=== PATIENT | female | born 1970 | race Caucasian/White ===

== ENCOUNTER 2016-08-29 13:04 | Inpatient (IN) | payer OTHER ==
[~2016-08-29] VITALS: Ht 147.3 cm; Wt 92.0 kg
[2016-08-29] MEDS ORDERED: ACETAMINOPHEN 325 MG TAB PO STA (14:11)
[2016-08-29] MEDS ORDERED: PIPERACILLIN/TAZOBACTAM 4.5 GM/100ML D5W IV STA (14:11)
[2016-08-29] MEDS ORDERED: IBUPROFEN 600 MG TAB PO STA (14:11)
[2016-08-29] MEDS ORDERED: SODIUM CHLORIDE 0.9% 1000ML 1,000 ML IV ONE (14:11)
[2016-08-29] MEDS ORDERED: LORAZEPAM 1 MG TAB SL STA (14:20)
--- NOTE | 2016-08-29 14:26 | EMERGENCY ROOM VISIT NOTE ---
History Report prepared by Chikis: Shakeel Sharp Under the Supervision of: Dr. Hitesh Gee M.D. First contact with patient: 14:06 Chief Complaint: FEVER Stated Complaint: FEVER, RASH History of Present Illness The patient is a 46 year old female with Down Syndrome who presents to the Emergency Room with complaints of a worsening rash on her upper body beginning several hours prior to arrival. As per sister, the patient associates a fever, lip dryness and eye redness with today's symptoms. She states she gave the patient a bath last night and did not notice the rash. The sister notes the patient was at work at [employer], and she received a call about the patient's rash. She states the she took the patient to [employer], where the patient had a fever. The patient denies the rash being itchy. 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 She states the patient had a cough and stuffy nose last week, but her symptoms have resolved. The patient denies pain with urination, diarrhea, vomiting, and a sore throat. 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 Review of Systems See HPI for pertinent positives & negatives. A total of 10 systems reviewed and were otherwise negative. Past Medical & Surgical Medical Problems: (1) Psoriasis (2) Rosacea Surgical Problems: (1) History of open heart surgery Family History Patient reports no known family medical history. Social History Smoking Status: Never Smoker Marital Status: single Housing Status: lives with family Current/Historical Medications Scheduled Levothyroxine Sodium (Synthroid), 112 MCG PO QAM Metformin Hcl (Glucophage), 500 MG PO QAM Allergies Coded Allergies: No Known Allergies (Unverified , 08/29/16) Physical Exam Vital Signs Date Time Temp Pulse Resp B/P Pulse Ox O2 Delivery O2 Flow Rate FiO2 08/29/16 16:03 106 19 93/43 91 Room Air 08/29/16 14:34 95 Room Air 08/29/16 14:05 39.4 117 22 129/78 100 Room Air 08/29/16 13:14 38.7 120 20 123/78 97 Room Air Physical Exam GENERAL: Patient is in no acute distress. HEENT: No acute trauma, normocephalic atraumatic, mucous membranes dry, erythematous throat with some exudate, tongue seems reddened as well, no nasal congestion, no scleral icterus. NECK: No stridor, no adenopathy, no meningismus, trachea is midline. LUNGS: Decreased breath sounds bilaterally. Breath sounds equal. No wheezing or rhonchi. HEART: Tachycardic with a 3/6 systolic murmur with a regular rhythm. ABDOMEN: Soft, nontender, bowel sounds positive, no hernias, no peritonitis. EXTREMITIES: No cyanosis or edema, full range of motion of all the joints without pain or difficulty, no signs for acute trauma. NEUROLOGIC: Awake and alert. Follows commands. Evidence for Downs Syndrome. SKIN: Erythematous, warm, patchy rash on the trunk, extremities, and possibly the neck. No rash on the lower extremities. No drainage. Medical Decision & Procedures ER Provider Diagnostic Interpretation: X-ray results as stated below per interpretation by me and the radiologist: CHEST ONE VIEW PORTABLE CLINICAL HISTORY: Sepsis dyspnea COMPARISON STUDY: No previous studies for comparison. FINDINGS: Poor inspiratory volumes. Slight interstitial prominence. Mild cardiomegaly. IMPRESSION: Slight generalized interstitial prominence. No well-defined focal infiltrate. Electronically signed by: Johnathan Kelley M.D. 08/29/2016 3:07 PM Laboratory Results 08/29/16 14:36 Red Blood Count 4.36, Mean Corpuscular Volume 89.2, Mean Corpuscular Hemoglobin 30.0, Mean Corpuscular Hemoglobin Concent 33.7, Mean Platelet Volume 9.9, Neutrophils (%) (Auto) 93.1, Lymphocytes (%) (Auto) 3.9, Monocytes (%) (Auto) 2.3, Eosinophils (%) (Auto) 0.0, Basophils (%) (Auto) 0.2, Neutrophils # (Auto) 25.63, Lymphocytes # (Auto) 1.08, Monocytes # (Auto) 0.64, Eosinophils # (Auto) 0.01, Basophils # (Auto) 0.05 08/29/16 14:36 Test 08/29/16 10:54 08/29/16 14:36 08/29/16 14:37 08/29/16 14:39 Urine Color DK YELLOW Urine Appearance TURBID (CLEAR) Urine pH 5.0 (4.5-7.5) Urine Specific [place] 1.032 (1.000-1.030) Urine Protein 1+ (NEG) Urine Glucose (UA) NEG (NEG) Urine Ketones 2+ (NEG) Urine Occult Blood 2+ (NEG) Urine Nitrite NEG (NEG) Urine Bilirubin NEG (NEG) Urine Urobilinogen NEG (NEG) Urine Leukocyte Esterase NEG (NEG) Urine WBC (Auto) 1-5 /hpf (0-5) Urine RBC (Auto) 10-30 /hpf (0-4) Urine Hyaline Casts (Auto) 0 /lpf (0-5) Urine Epithelial Cells (Auto) >30 /lpf (0-5) Urine Bacteria (Auto) NEG (NEG) Urine Renal Epithelial Cells /lpf (0-5) Urine Crystals AMORPHOUS SEDIMENT (NONE Urine Pathogenic Casts /lpf (0) Urine Mucus PRESENT (NONE PRSENT) Urine Yeast (Auto) (NONE PRSENT) White Blood Count 27.56 K/uL (4.8-10.8) Red Blood Count 4.36 M/uL (4.2-5.4) Hemoglobin 13.1 g/dL (12.0-16.0) Hematocrit 38.9 % (37-47) Mean Corpuscular Volume 89.2 fL (80-100) Mean Corpuscular Hemoglobin 30.0 pg (25-34) Mean Corpuscular Hemoglobin Concent 33.7 g/dl (32-36) Platelet Count 285 K/uL (130-400) Mean Platelet Volume 9.9 fL (7.4-10.4) Neutrophils (%) (Auto) 93.1 % Lymphocytes (%) (Auto) 3.9 % Monocytes (%) (Auto) 2.3 % Eosinophils (%) (Auto) 0.0 % Basophils (%) (Auto) 0.2 % Neutrophils # (Auto) 25.63 K/uL (1.4-6.5) Lymphocytes # (Auto) 1.08 K/uL (1.2-3.4) Monocytes # (Auto) 0.64 K/uL (0.11-0.59) Eosinophils # (Auto) 0.01 K/uL (0-0.5) Basophils # (Auto) 0.05 K/uL (0-0.2) RDW Standard Deviation 56.5 fL (36.4-46.3) RDW Coefficient of Variation 17.2 % (11.5-14.5) Immature Granulocyte % (Auto) 0.5 % Immature Granulocyte # (Auto) 0.15 K/uL (0.00-0.02) Prothrombin Time 11.6 SECONDS (9.0-12.0) Prothromb Time International Ratio 1.1 (0.9-1.1) Activated Partial Thromboplast Time 28.0 SECONDS (21.0-31.0) Partial Thromboplastin Ratio 1.1 Anion Gap 11.0 mmol/L (3-11) Est Creatinine Clear Calc Drug Dose 67.4 ml/min Estimated GFR () 79.4 Estimated GFR (Non- 68.5 BUN/Creatinine Ratio 9.7 (10-20) Calcium Level 8.4 mg/dl (8.5-10.1) Magnesium Level 2.1 mg/dl (1.8-2.4) Total Bilirubin 0.7 mg/dl (0.2-1) Aspartate Amino Transf (AST/SGOT) 34 U/L (15-37) Alanine Aminotransferase (ALT/SGPT) 42 U/L (12-78) Alkaline Phosphatase 112 U/L (45-117) Total Protein 8.3 gm/dl (6.4-8.2) Albumin 2.5 gm/dl (3.4-5.0) Globulin 5.8 gm/dl (2.5-4.0) Albumin/Globulin Ratio 0.4 (0.9-2) Monoscreen NEG (NEG) Influenza Type A Antigen Neg for Influ A (NEG) Influenza Type B Antigen Neg for Influ B (NEG) Bedside Lactic Acid Venous 1.55 mmol/L (0.90-1.70) Test 08/29/16 17:44 Lactic Acid Level 1.1 mmol/L (0.4-2.0) Laboratory results reviewed by me. Medications Administered Medications (Trade) Dose Ordered Sig/Artur Route Start Time Stop Time Status Last Admin Dose Admin Sodium Chloride (Nss 1000ml) 1,000 ml @ 999 mls/hr Q1H1M ONCE IV 08/29/16 14:11 08/29/16 15:11 DC 08/29/16 15:18 999 MLS/HR Piperacillin Sod/ Tazobactam Sod 4.5 gm 4.5 gm ONE STAT IV 08/29/16 14:11 08/29/16 14:14 DC 08/29/16 15:20 4.5 GM Daptomycin/Sodium Chloride (Cubicin IV/Nss 50ml) 60 ml @ 100 mls/hr NOW ONCE IV 08/29/16 14:45 08/29/16 15:20 DC 08/29/16 15:20 100 MLS/HR Acetaminophen (Tylenol Tab) 650 mg NOW STAT PO 08/29/16 14:11 08/29/16 14:14 DC 08/29/16 14:41 650 MG Ibuprofen (Motrin Tab) 600 mg NOW STAT PO 08/29/16 14:11 08/29/16 14:14 DC 08/29/16 14:41 600 MG Lorazepam (Ativan Tab) 1 mg NOW STAT SL 08/29/16 14:20 08/29/16 14:21 DC 08/29/16 14:25 1 MG ED Course 1407: The patient was evaluated in room B5. A complete history and physical exam was performed. 1411: Ordered Motrin Tab 600 mg PO, Tylenol Tab 650 mg PO, Zosyn Iv 4.5 gm IV, Sodium Chloride 1,000 ml @ 999 mls/hr IV. 1420: Ordered Ativan Tab 1 mg SL. 1445: Ordered Daptomycin 500 mg/Sodium Chloride 60 ml @ 100 mls/hr IV. 1541: Reevaluated the patient and updated the patient and her family. 1554: I spoke to Kandi Hernandez PA-C ([facility]) about the patient's case, and she will follow the patient for further evaluation. Medical Decision The differential diagnoses include but are not limited to: dehydration, strep pharyngitis, mono, cellulitis, pneumonia, UTI, electrolyte imbalance, endocarditis, bacteremia, sepsis. There is a marked leukocytosis at 27,000, no worrisome anemia. No significant electrolyte abnormality, kidney failure or hepatitis. Lactic acid level is not elevated making severe sepsis less likely. Urinalysis shows dehydration, no obvious infection. [place] testing was negative. Influenza testing was negative. Chest x-ray does not show pneumonia or CHF. Strep testing was positive. Blood cultures are pending. The patient was aggressively managed. She received IV saline, she was given IV Zosyn and IV daptomycin. She received oral Tylenol and oral Motrin for fever. The patient was given a dose of IV Ativan for relaxation. The patient is doing well, I do think admission/observation is warranted. I did speak with the family, I talked with case management. The on-call hospitalist was consulted. The patient appears to have early sepsis from a strep infection. Consults Time Called: 153 Consulting Physician: Kandi Hernandez PA-C ([facility]) Returned Call: 1554 I spoke to Kandi Hernandez PA-C ([facility]) about the patient's case, and she will follow the patient for further evaluation. Impression Primary Impression: Sepsis Additional Impressions: Dehydration Strep pharyngitis Rash Critical Care I have personally spent greater than 35 minutes of critical care time in the direct management of this patient. This includes bedside care, interpretation of diagnostic studies, and testing, discussion with consultants, patient, and family members, and other required patient management activities. This 35 minutes is in excess of all separately billable procedures. Scribe Attestation The scribe's documentation has been prepared under my direction and personally reviewed by me in its entirety. I confirm that the note above accurately reflects all work, treatment, procedures, and medical decision making performed by me. Departure Information Dispostion Being Evaluated By Hospitalist (Kandi Hernandez PA-C ([facility])) Referrals No Doctor, Assigned (PCP) Problem Qualifiers
[2016-08-29] MEDS ORDERED: GLC/500 PO (14:38)
[2016-08-29] MEDS ORDERED: DAPTOmycin IV 500 MG in SODIUM CHLORIDE 0.9% 50ML 50 ML IV ONE (14:45)
[2016-08-29 15:02] LABS: HEMATOCRIT 38.9 % (37-47); MEAN CELL VOLUME 89.2 fL (80-100); MEAN CORPUSCULAR HGB CONC 33.7 g/dl (32-36); MEAN PLATELET VOLUME 9.9 fL (7.4-10.4); PLATELET COUNT 285 K/uL (130-400); RED BLOOD COUNT 4.36 M/uL (4.2-5.4); WHITE BLOOD COUNT 27.56 K/uL (4.8-10.8)
--- NOTE | 2016-08-29 15:08 | DIAGNOSTIC IMAGING REPORT ---
CHEST ONE VIEW PORTABLE CLINICAL HISTORY: Sepsis dyspnea COMPARISON STUDY: No previous studies for comparison. FINDINGS: Poor inspiratory volumes. Slight interstitial prominence. Mild cardiomegaly. IMPRESSION: Slight generalized interstitial prominence. No well-defined focal infiltrate. Electronically signed by: Johnathan Kelley M.D. 08/29/2016 3:07 PM Dictated Date/Time: 08/29/2016 3:05 PM
[2016-08-29 15:12] LABS: INR 1.1 (0.9-1.1); PARTIAL THROMBOPLASTIN RATIO 1.1; PROTHROMBIN TIME (PATIENT) 11.6 SECONDS (9.0-12.0)
[2016-08-29 15:17] LABS: BUN/CREATININE RATIO 9.7 (10-20); CALCIUM 8.4 mg/dl (8.5-10.1); MAGNESIUM 2.1 mg/dl (1.8-2.4); POTASSIUM 3.9 mmol/L (3.5-5.1)
[2016-08-29 15:20] LABS: ALB/GLOB RATIO 0.4 (0.9-2)
[2016-08-29 15:21] LABS: BASO % 0.2 %; BASO ABS # 0.05 K/uL (0-0.2); COMPLETE YES; IG% 0.5 %; LYMPH % 3.9 %; LYMPH ABS # 1.08 K/uL (1.2-3.4); MONO % 2.3 %; NEUT % 93.1 %
[2016-08-29 16:10] LABS: URINE APPEARANCE TURBID (CLEAR); URINE COLOR DK YELLOW; URINE EPITHELIAL CELL AUTO >30 /lpf (0-5); URINE NITRITE NEG (NEG); URINE SPECIFIC GRAVITY 1.032 (1.000-1.030); UROBILINOGEN NEG (NEG); ZZUR CULT IF INDIC CLEAN CATCH YES
[2016-08-29 16:12] LABS: MANUAL MICROSCOPIC REQUIRED? NO; REVIEW REQ? YES
[2016-08-29 16:14] LABS: URINE BILIRUBIN NEG (NEG)
[2016-08-29 16:40] LABS: URINE MUCUS PRESENT (NONE PRSENT)
[2016-08-29] MEDS ORDERED: ONDANSETRON INJ 2 MG/ML 2 ML VIAL IV PRN (17:00)
--- NOTE | 2016-08-29 19:44 | History and Physical ---
History & Physical Date & Time of Service: Aug 29, 2016 at 18:50 Chief Complaint: Fever, Rash Primary Care Physician: Rodrigue Bhandari D.O. History of Present Illness 46 year old female who presents to the ER with fever and rash. Patient has Down' s syndrome and some history is obtained from her brother who is at the bedside. He reports that she was at [facility] today and they noted a rash on her right upper arm with a couple of small blisters. She was seen at [facility] and was noted to be febrile and the rash was spreading over both arms and her trunk. Patient denies any complaints. She reports the rash is not pruritic. She denies chills or body aches. Brother reports she has been in her usual state of health. No reports of chest pain or shortness of breath. Denies throat soreness or difficulty swallowing. She has chronic edema and venous changes to her BLLE which are unchanged. No abdominal pain, nausea, vomiting, or diarrhea. No urinary symptoms. Denies lightheadedness, dizziness, or syncopal events. In the ER, patient is febrile 39.4 and tachycardic in the 110s. BP stable. Lactic acid is negative. Rapid strep was positive. Patient was given IVF, Tylenol, Daptomycin, and Imipenem. Past Medical/Surgical History Medical Problems: (1) Down syndrome Status: Chronic (2) Hyperinsulinemia Status: Chronic (3) Hypothyroidism Status: Chronic (4) Mild mental retardation Status: Chronic Surgical Problems: (1) H/O atrial septal defect repair Status: Chronic Family History FH: CVA (cerebrovascular accident) FATHER Social History Smoking Status: Never Smoker Alcohol Use: none Housing status: lives with family Immunizations History of Influenza Vaccine: Yes Influenza Vaccine Date: Apr 29, 2015 History of Tetanus Vaccine?: Yes Tetanus Immunization Date: Mar 31, 2008 Allergies Coded Allergies: No Known Allergies (Unverified , 08/29/16) Home Medications Scheduled Levothyroxine Sodium (Synthroid), 112 MCG PO QAM Metformin Hcl (Glucophage), 500 MG PO QAM Review of Systems 10 point review of systems was completed with the pertinent positives and negatives noted per the HPI Physical Exam Vital Signs Date Time Temp Pulse Resp B/P Pulse Ox O2 Delivery O2 Flow Rate FiO2 08/29/16 18:44 36.7 08/29/16 18:00 87 16 109/61 92 Room Air 08/29/16 16:03 106 19 93/43 91 Room Air 08/29/16 14:34 95 Room Air 08/29/16 14:05 39.4 117 22 129/78 100 Room Air 08/29/16 13:14 38.7 120 20 123/78 97 Room Air General Appearance: no apparent distress Head: normocephalic Eyes: normal inspection ENT: hearing grossly normal, + pharyngeal erythema Neck: supple, no JVD Respiratory/Chest: lungs clear, normal breath sounds, no respiratory distress Cardiovascular: + tachycardia (regular rhythm), + systolic murmur, + pertinent finding (trace edema BLLE ) Abdomen/GI: normal bowel sounds, non tender, soft Extremities/Musculoskelatal: normal inspection, no calf tenderness Neurologic/Psych: no motor/sensory deficits, alert, oriented x 3, + pertinent finding (hx Downs syndrome, mild mental retardation) Skin: + rash (flat reddened, non blanching, noted over BLUE and trunk; two small fluid filled blisters on the posterior aspect of the right upper arm) Diagnostics Laboratory Results Results Past 24 Hours Test 08/29/16 10:54 08/29/16 14:36 08/29/16 14:37 08/29/16 14:39 Range/Units Urine Color DK YELLOW Urine Appearance TURBID CLEAR Urine pH 5.0 4.5-7.5 Urine Specific [place] 1.032 1.000-1.030 Urine Protein 1+ NEG Urine Glucose (UA) NEG NEG Urine Ketones 2+ NEG Urine Occult Blood 2+ NEG Urine Nitrite NEG NEG Urine Bilirubin NEG NEG Urine Urobilinogen NEG NEG Urine Leukocyte Esterase NEG NEG Urine WBC (Auto) 1-5 0-5 /hpf Urine RBC (Auto) 10-30 0-4 /hpf Urine Hyaline Casts (Auto) 0 0-5 /lpf Urine Epithelial Cells (Auto) >30 0-5 /lpf Urine Bacteria (Auto) NEG NEG Urine Renal Epithelial Cells 0-5 /lpf Urine Crystals AMORPHOUS SEDIMENT NONE PRSENT Urine Pathogenic Casts 0 /lpf Urine Mucus PRESENT NONE PRSENT Urine Yeast (Auto) NONE PRSENT White Blood Count 27.56 4.8-10.8 K/uL Red Blood Count 4.36 4.2-5.4 M/uL Hemoglobin 13.1 12.0-16.0 g/dL Hematocrit 38.9 37-47 % Mean Corpuscular Volume 89.2 80-100 fL Mean Corpuscular Hemoglobin 30.0 25-34 pg Mean Corpuscular Hemoglobin Concent 33.7 32-36 g/dl Platelet Count 285 130-400 K/uL Mean Platelet Volume 9.9 7.4-10.4 fL Neutrophils (%) (Auto) 93.1 % Lymphocytes (%) (Auto) 3.9 % Monocytes (%) (Auto) 2.3 % Eosinophils (%) (Auto) 0.0 % Basophils (%) (Auto) 0.2 % Neutrophils # (Auto) 25.63 1.4-6.5 K/uL Lymphocytes # (Auto) 1.08 1.2-3.4 K/uL Monocytes # (Auto) 0.64 0.11-0.59 K/uL Eosinophils # (Auto) 0.01 0-0.5 K/uL Basophils # (Auto) 0.05 0-0.2 K/uL RDW Standard Deviation 56.5 36.4-46.3 fL RDW Coefficient of Variation 17.2 11.5-14.5 % Immature Granulocyte % (Auto) 0.5 % Immature Granulocyte # (Auto) 0.15 0.00-0.02 K/uL Prothrombin Time 11.6 9.0-12.0 SECONDS Prothromb Time International Ratio 1.1 0.9-1.1 Activated Partial Thromboplast Time 28.0 21.0-31.0 SECONDS Partial Thromboplastin Ratio 1.1 Sodium Level 136 136-145 mmol/L Potassium Level 3.9 3.5-5.1 mmol/L Chloride Level 99 98-107 mmol/L Carbon Dioxide Level 26 21-32 mmol/L Anion Gap 11.0 3-11 mmol/L Blood Urea Nitrogen 10 7-18 mg/dl Creatinine 1.00 0.60-1.20 mg/dl Est Creatinine Clear Calc Drug Dose 67.4 ml/min Estimated GFR () 79.4 Estimated GFR (Non- 68.5 BUN/Creatinine Ratio 9.7 10-20 Random Glucose 95 70-99 mg/dl Calcium Level 8.4 8.5-10.1 mg/dl Magnesium Level 2.1 1.8-2.4 mg/dl Total Bilirubin 0.7 0.2-1 mg/dl Aspartate Amino Transf (AST/SGOT) 34 15-37 U/L Alanine Aminotransferase (ALT/SGPT) 42 12-78 U/L Alkaline Phosphatase 112 45-117 U/L Total Protein 8.3 6.4-8.2 gm/dl Albumin 2.5 3.4-5.0 gm/dl Globulin 5.8 2.5-4.0 gm/dl Albumin/Globulin Ratio 0.4 0.9-2 Monoscreen NEG NEG Influenza Type A Antigen Neg for Influ A NEG Influenza Type B Antigen Neg for Influ B NEG Bedside Lactic Acid Venous 1.55 0.90-1.70 mmol/L Test 08/29/16 17:44 Range/Units Lactic Acid Level 1.1 0.4-2.0 mmol/L Microbiology Results 08/29/16 Blood Culture, Received Pending 08/29/16 Blood Culture, Received Pending 08/29/16 Group A Streptococcus Screen, Aren Batch Pending 08/29/16 Group A Streptococcus Screen (ALLAN), Aren Batch Pending 08/29/16 Urine Culture, Received Pending Diagnostic Radiology CXR IMPRESSION: Slight generalized interstitial prominence. No well-defined focal infiltrate. Impression Assessment and Plan SEPSIS DUE TO STREP - admit to tele - presenting with fast spreading rash, fever, leukocytosis, and tachycardia; lactic acid WNL, BP stable - HR improved with IVF, afebrile after Tylenol administration - rapid throat strep + in ED - culture sent to lab for confirmation - rapid flu negative, will check PCR - s/p Dapto and Imipenem in ED; case discussed with ID, will start patient on Ancef and add clindamycin for antitoxin effect - blood cultures drawn - consider rheumatic fever - does have murmur on exam however murmur has been documented in patient's history; will check EKG, troponin, ESR, CRP; low threshold for echo - do not suspect TSS HYPOTHYROIDISM - continue levothyroxine 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 07/2016 - hold metformin, check BSG DVT PROPHYLAXIS - SCDs DISPO - In my clinical judgment this beneficiary meets acute admission criteria, established by [facility], that includes being hospitalized through two midnights. Agree with above H and P.Briefly 46F with hx of down syndrome was brought in because of fast spreading rash on the trunk and fevers. Initially patient denies any complains but has sore throat now. BP stable. Lives with brother and ambulatory at home. 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 on iv Ancef and clindamycin as er ID recommendation f/u cx consider echo VTE Prophylaxis VTE Risk Assessment Done? Y/N: Yes Risk Level: Low
[2016-08-29 19:59] VITALS: BP 131/73; PULSE 96; TEMP 36.9; O2SAT 96; Ht 147.3 cm; Wt 92.0 kg
[2016-08-29] MEDS: SODIUM CHLORIDE 0.9% 1000ML 1,000 ML IV SCH (20:34)
[2016-08-29] MEDS: CLINDAMYCIN IV 600 MG in DEXTROSE 5% ADD-VANTAGE 50ML 50 ML IV SCH (20:55)
[2016-08-29] MEDS: CEFAZOLIN IV 2,000 MG in DEXTROSE 5% 50ML 50 ML IV SCH (22:22)
[2016-08-30] VITALS (7 sets, daily range): BP systolic 87–124; BP diastolic 56–82; PULSE 76–93; TEMP 36.8–37.3; O2SAT 94–96
[2016-08-30 01:13] LABS: INFLUENZA A PCR Neg for Influ A (NEG); INFLUENZA B PCR Neg for Influ B (NEG)
[2016-08-30] MEDS: SODIUM CHLORIDE 0.9% 1000ML 1,000 ML IV SCH ×3 (03:09→18:43)
[2016-08-30] MEDS: CLINDAMYCIN IV 600 MG in DEXTROSE 5% ADD-VANTAGE 50ML 50 ML IV SCH ×3 (03:15→19:26)
[2016-08-30] MEDS ORDERED: SODIUM CHLORIDE 0.9% 500ML 500 ML IV ONE ×2 (03:45→05:15)
[2016-08-30 04:33] LABS: BASO % 0.2 %; BASO ABS # 0.04 K/uL (0-0.2); COMPLETE YES; EOS % 0.2 %; HEMATOCRIT 33.9 % (37-47); IG% 0.4 %; LYMPH ABS # 0.83 K/uL (1.2-3.4); MEAN CELL VOLUME 89.9 fL (80-100); MEAN CORPUSCULAR HEMOGLOBIN 29.4 pg (25-34); MEAN CORPUSCULAR HGB CONC 32.7 g/dl (32-36); MEAN PLATELET VOLUME 9.6 fL (7.4-10.4); MONO % 2.7 %; NEUT % 92.5 %; PLATELET COUNT 222 K/uL (130-400); RED BLOOD COUNT 3.77 M/uL (4.2-5.4)
[2016-08-30 05:05] LABS: BUN/CREATININE RATIO 11.6 (10-20); CALCIUM 7.4 mg/dl (8.5-10.1); CREATININE 1.3 mg/dl (0.60-1.20); MAGNESIUM 2.2 mg/dl (1.8-2.4); POTASSIUM 3.8 mmol/L (3.5-5.1)
[2016-08-30] MEDS: CEFAZOLIN IV 2,000 MG in DEXTROSE 5% 50ML 50 ML IV SCH ×2 (06:00→13:28)
[2016-08-30] MEDS: LEVOTHYROXINE 112 MCG TAB PO SCH (06:01)
--- NOTE | 2016-08-30 07:59 | Clinical Documentation Query ---
BECKI Workman : CLINICAL DOCUMENTATION QUERIES QUERY 1 OF 2 Patient is a 46 year old female admitted with sepsis due to strep pharyngitis. Admission BUN and creatinine were 10 mg/dl and 1.00 mg/dl. Repeat testing this a.m demonstrated values of 15 mg/dl and 1.30 mg/dl. Patient was administered a 500 cc bolus x 2 of IV NSS and is recieving maintenance fluids at 125 ml/hr. Additionally recieved a 1L bolus in the ED. She is being monitored with serial chemistries. In your clinical opinion is this patient being managed for: ( x ) Acute kidney failure ( ) Other explanation of clinical findings (Please Explain) ( ) Unable to determine (Please Define) ( ) Need to Discuss ( ) Not Agree The medical record reflects the following clinical findings, treatment, and risk factors. Clinical Indicators: As above Treatment:Patient was administered a 500 cc bolus x 2 of IV NSS and is recieving maintenance fluids at 125 ml/hr. Additionally recieved a 1L bolus in the ED. She is being monitored with serial chemistries. Risk Factors: Sepsis, possible poor oral intake prior to arrival. QUERY 2 OF 2 BMI noted to be 41.3 kg/m*m. CMS recognizes an elevated BMI to always be clinically significant. However, in order to capture the BMI, the associated clinical diagnosis must exist within the medical record. Consider clarification as suggested below as clinically appropriate. Thank you. In your clinical opinion is this patient being managed for/have a personal history of: ( ) Obesity ( ) Other explanation of clinical findings (Please Explain) ( ) Unable to determine (Please Define) ( ) Need to Discuss ( ) Not Agree The medical record reflects the following clinical findings, treatment, and risk factors. Clinical Indicators: As above Treatment:n/a Risk Factors: Down syndrome, lack of physical activity, overeating General Coding Guidelines ICD-10-CM Official Guidelines for Coding and Reporting 14. Documentation for BMI For the Body Mass Index (BMI), code assignment may be based on medical record documentation from clinicians who are not the patient's provider (i.e., physician or other qualified healthcare practitioner legally accountable for establishing the patient's diagnosis), since this information is typically documented by other clinicians involved in the care of the patient. However, the associated diagnosis (such as overweight or obesity) must be documented by the patient's provider. If there is conflicting medical record documentation, either from the same clinician or different clinicians, the patient's attending provider should be queried for clarification. Please clarify and document your clinical opinion in the progress notes and discharge summary. Terms such as "probable", "suspected", "likely", "questionable", "possible", or "still to be ruled out" are acceptable. IF IN AGREEMENT, YOU MUST DOCUMENT ABOVE DIAGNOSTIC STATEMENT IN DAILY PROGRESS NOTES AND DISCHARGE SUMMARY. This document is not part of the patient's record. Thank You, Sean Vines, ASHLYN [phone]
[2016-08-30] MEDS ORDERED: INFLUENZA ADMINISTRATION CHARGE ONE (09:00)
[2016-08-30] MEDS ORDERED: PNEUMOCOCCAL POLYSACCHARIDES 25 MCG/0.5 ML VIAL/SYR IM. ONE (09:00)
[2016-08-30] MEDS ORDERED: PNEUMOCOCCAL ADMINISTRATION CHARGE ONE (09:00)
[2016-08-30] MEDS ORDERED: INFLUENZA VIRUS QUAD VACCINE 0.5 ML SYR IM. ONE (09:00)
[2016-08-30] MEDS: ACETAMINOPHEN 325 MG TAB PO PRN ×2 (11:08→21:42)
--- NOTE | 2016-08-30 12:42 | Clinical Documentation Query ---
DONIS Rodriguez : CLINICAL DOCUMENTATION QUERIES QUERY 1 OF 2 Patient is a 46 year old female admitted with sepsis due to strep pharyngitis. Admission BUN and creatinine were 10 mg/dl and 1.00 mg/dl. Repeat testing this a.m demonstrated values of 15 mg/dl and 1.30 mg/dl. Patient was administered a 500 cc bolus x 2 of IV NSS and is recieving maintenance fluids at 125 ml/hr. Additionally recieved a 1L bolus in the ED. She is being monitored with serial chemistries. In your clinical opinion is this patient being managed for: ( ) Acute kidney failure ( ) Other explanation of clinical findings (Please Explain) ( ) Unable to determine (Please Define) ( ) Need to Discuss ( ) Not Agree The medical record reflects the following clinical findings, treatment, and risk factors. Clinical Indicators: As above Treatment:Patient was administered a 500 cc bolus x 2 of IV NSS and is recieving maintenance fluids at 125 ml/hr. Additionally recieved a 1L bolus in the ED. She is being monitored with serial chemistries. Risk Factors: Sepsis, possible poor oral intake prior to arrival. QUERY 2 OF 2 BMI noted to be 41.3 kg/m*m. CMS recognizes an elevated BMI to always be clinically significant. However, in order to capture the BMI, the associated clinical diagnosis must exist within the medical record. Consider clarification as suggested below as clinically appropriate. Thank you. In your clinical opinion is this patient being managed for/have a personal history of: ( ) Obesity ( ) Other explanation of clinical findings (Please Explain) ( ) Unable to determine (Please Define) ( ) Need to Discuss ( ) Not Agree The medical record reflects the following clinical findings, treatment, and risk factors. Clinical Indicators: As above Treatment:n/a Risk Factors: Down syndrome, lack of physical activity, overeating General Coding Guidelines ICD-10-CM Official Guidelines for Coding and Reporting 14. Documentation for BMI, Non-pressure ulcers and Pressure Ulcer Stages For the Body Mass Index (BMI), depth of non-pressure chronic ulcers and pressure ulcer stage codes, code assignment may be based on medical record documentation from clinicians who are not the patient's provider (i.e., physician or other qualified healthcare practitioner legally accountable for establishing the patient's diagnosis), since this information is typically documented by other clinicians involved in the care of the patient (e.g., a dietitian often documents the BMI and nurses often documents the pressure ulcer stages). However, the associated diagnosis (such as overweight, obesity, or pressure ulcer) must be documented by the patient's provider. If there is conflicting medical record documentation, either from the same clinician or different clinicians, the patient's attending provider should be queried for clarification. Please clarify and document your clinical opinion in the progress notes and discharge summary. Terms such as "probable", "suspected", "likely", "questionable", "possible", or "still to be ruled out" are acceptable. IF IN AGREEMENT, YOU MUST DOCUMENT ABOVE DIAGNOSTIC STATEMENT IN DAILY PROGRESS NOTES AND DISCHARGE SUMMARY. This document is not part of the patient's record. Thank You, Sean Vines, ASHLYN [phone]
--- NOTE | 2016-08-30 14:01 | Progress Note ---
Medicine Progress Note Date & Time of Visit: Aug 30, 2016 at 13:42. Subjective Pt was seen and examined Sitting in bed very comfortable with family member at bedside Pt said that she feels fine she denies any chest pain, palpitation, dizziness and sob Objective Last 8 Hrs Date Time Temp Pulse Resp B/P Pulse Ox O2 Delivery O2 Flow Rate FiO2 08/30/16 12:00 Room Air 08/30/16 12:00 37.3 89 20 124/82 94 Room Air 08/30/16 10:06 Room Air 08/30/16 07:16 36.8 89 24 88/65 96 Room Air Physical Exam: General- no acute distress, very pleasant Head- atraumatic Eyes- PERRL, EOMI ENT- oropharynx clear Neck- supple, no JVD Lungs- clear to auscultation and percussion Heart- +murmur Abdomen- normal bowel sounds, soft Extremities-no calf tenderness, swelling in the left hand Neuro- alert, awake, PERRL, EOMI; no facial palsy Skin- warm & dry Laboratory Results: Last 24 Hours Test 08/29/16 14:36 08/29/16 14:37 08/29/16 14:39 08/29/16 17:44 White Blood Count 27.56 K/uL Red Blood Count 4.36 M/uL Hemoglobin 13.1 g/dL Hematocrit 38.9 % Mean Corpuscular Volume 89.2 fL Mean Corpuscular Hemoglobin 30.0 pg Mean Corpuscular Hemoglobin Concent 33.7 g/dl Platelet Count 285 K/uL Mean Platelet Volume 9.9 fL Neutrophils (%) (Auto) 93.1 % Lymphocytes (%) (Auto) 3.9 % Monocytes (%) (Auto) 2.3 % Eosinophils (%) (Auto) 0.0 % Basophils (%) (Auto) 0.2 % Neutrophils # (Auto) 25.63 K/uL Lymphocytes # (Auto) 1.08 K/uL Monocytes # (Auto) 0.64 K/uL Eosinophils # (Auto) 0.01 K/uL Basophils # (Auto) 0.05 K/uL RDW Standard Deviation 56.5 fL RDW Coefficient of Variation 17.2 % Immature Granulocyte % (Auto) 0.5 % Immature Granulocyte # (Auto) 0.15 K/uL Erythrocyte Sedimentation Rate > 90 mm/hr Prothrombin Time 11.6 SECONDS Prothromb Time International Ratio 1.1 Activated Partial Thromboplast Time 28.0 SECONDS Partial Thromboplastin Ratio 1.1 Sodium Level 136 mmol/L Potassium Level 3.9 mmol/L Chloride Level 99 mmol/L Carbon Dioxide Level 26 mmol/L Anion Gap 11.0 mmol/L Blood Urea Nitrogen 10 mg/dl Creatinine 1.00 mg/dl Est Creatinine Clear Calc Drug Dose 67.4 ml/min Estimated GFR () 79.4 Estimated GFR (Non- 68.5 BUN/Creatinine Ratio 9.7 Random Glucose 95 mg/dl Calcium Level 8.4 mg/dl Magnesium Level 2.1 mg/dl Total Bilirubin 0.7 mg/dl Aspartate Amino Transf (AST/SGOT) 34 U/L Alanine Aminotransferase (ALT/SGPT) 42 U/L Alkaline Phosphatase 112 U/L Troponin I < 0.015 ng/ml C-Reactive Protein 18.60 mg/dl Total Protein 8.3 gm/dl Albumin 2.5 gm/dl Globulin 5.8 gm/dl Albumin/Globulin Ratio 0.4 Monoscreen NEG Influenza Type A Antigen Neg for Influ A Influenza Type B Antigen Neg for Influ B Bedside Lactic Acid Venous 1.55 mmol/L Lactic Acid Level 1.1 mmol/L Test 08/29/16 20:20 08/30/16 04:27 Influenza Type A (RT-PCR) Neg for Influ A Influenza Type B (RT-PCR) Neg for Influ B White Blood Count 20.90 K/uL Red Blood Count 3.77 M/uL Hemoglobin 11.1 g/dL Hematocrit 33.9 % Mean Corpuscular Volume 89.9 fL Mean Corpuscular Hemoglobin 29.4 pg Mean Corpuscular Hemoglobin Concent 32.7 g/dl Platelet Count 222 K/uL Mean Platelet Volume 9.6 fL Neutrophils (%) (Auto) 92.5 % Lymphocytes (%) (Auto) 4.0 % Monocytes (%) (Auto) 2.7 % Eosinophils (%) (Auto) 0.2 % Basophils (%) (Auto) 0.2 % Neutrophils # (Auto) 19.33 K/uL Lymphocytes # (Auto) 0.83 K/uL Monocytes # (Auto) 0.57 K/uL Eosinophils # (Auto) 0.04 K/uL Basophils # (Auto) 0.04 K/uL RDW Standard Deviation 57.7 fL RDW Coefficient of Variation 17.4 % Immature Granulocyte % (Auto) 0.4 % Immature Granulocyte # (Auto) 0.09 K/uL Sodium Level 141 mmol/L Potassium Level 3.8 mmol/L Chloride Level 108 mmol/L Carbon Dioxide Level 26 mmol/L Anion Gap 7.0 mmol/L Blood Urea Nitrogen 15 mg/dl Creatinine 1.30 mg/dl Est Creatinine Clear Calc Drug Dose 52.0 ml/min Estimated GFR () 57.8 Estimated GFR (Non- 49.9 BUN/Creatinine Ratio 11.6 Random Glucose 86 mg/dl Lactic Acid Level 1.5 mmol/L Calcium Level 7.4 mg/dl Magnesium Level 2.2 mg/dl Thyroid Stimulating Hormone (TSH) 3.660 uIu/ml Chemistry Specimen Hemolysis Date/Time Source Procedure Growth Status 08/29/16 15:00 Blood Blood Culture Pending Received 08/29/16 14:36 Blood Blood Culture Pending Received Assessment & Plan SEPSIS DUE TO STREP WBC on admission 27K leukocytosis trending down VS stable continue IVF Throat cx positive for strep A s/p Dapto and Imipenem in ED Case discussed with ID during admission recommends to start Ancef and add clindamycin for 48 hrs for antitoxin effect Blood cx pending and urine cx has no growth Might consider to change to PCN upon discharge No sign for Toxic shock syndrome Waiting for ID input RASH Scarlet fever From strep A Stable CONGENITAL HEART DISEASE Will get an echo asymptomatic HYPOTHYROIDISM - continue levothyroxine 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 07/2016 - hold metformin, check BSG DVT PROPHYLAXIS - SCDs CODE STATUS FULL CODE Current Inpatient Medications: Current Inpatient Medications Medications (Trade) Dose Ordered Sig/Artur Route Start Time Stop Time Status Last Admin Dose Admin Sodium Chloride (Nss 1000ml) 1,000 ml @ 125 mls/hr Q8H IV 08/29/16 16:53 09/28/16 16:52 08/30/16 05:59 125 MLS/HR Acetaminophen (Tylenol Tab) 650 mg Q4H PRN PO 08/29/16 17:00 09/28/16 16:59 08/30/16 11:08 650 MG Ondansetron HCl 4 mg 4 mg Q6H PRN IV 08/29/16 17:00 09/28/16 16:59 Cefazolin Sodium 2000 mg/Dextrose 60 ml @ 100 mls/hr Q8H IV 2/14/17 22:00 09/08/16 21:59 08/30/16 13:28 100 MLS/HR Clindamycin Phosphate/Dextrose (Cleocin Iv/ Dextrose Add-[place] 50ML) 54 ml @ 100 mls/hr Q8H IV 08/29/16 20:00 08/31/16 19:59 08/30/16 11:09 100 MLS/HR Levothyroxine Sodium (Synthroid Tab) 112 mcg DAILYBB PO 08/30/16 06:00 09/29/16 05:59 08/30/16 06:01 112 MCG
[2016-08-30] MEDS ORDERED: PERFLUTREN LIPID MICROSPHERE (DEFINITY) IV PRN (14:15)
[2016-08-30] MEDS ORDERED: NURSING VERBAL MED ORDER ONE (14:15)
--- NOTE | 2016-08-30 14:44 | Medical Consult ---
Consultation Date of Consultation: Aug 30, 2016. Attending Physician: Phil Valerio M.D. Reason for Consultation: Strep group A History of Present Illness Patient is a 46 yo female with Down Syndrome who presented to the ED with complaints of a worsening rash that happened suddenly. The patient had a cough last week according to her [id number], but it was thought to be a simple cold and went away. Otherwise, the patient has been in good health recently. The patient typically does not complain at home, and therefore it is difficult to assess for other previous symptoms. Her family member states that she did not feel warm or have any other obvious symptoms. Her rash started on her upper arms and continued spreading. She does also have dry, peeling lips, but this is chronic. The patient does have history of heart surgery when she was 4 years old at which time a "hole" was repaired. The patient otherwise is pleasant and does not complain of any specific problems. I did speak to Kandi Hernandez NP yesterday in regards to this patient at the time of admission as well. The patient had a positive strep screen though she was complaining of no sore throat. Blood cultures are pending. Urine culture is showing no growth. WBC count on admission was 27.56. ESR was > 90. CRp was 18.60. Creatinine increased slightly today to 1.30, but WBC count did come down a little to 20. Chest X-Ray showed slight generalized interstitial prominence. The patient is currently on IV Ancef and Clindamycin. I did also discuss this patient with Dr. Lagos. The patient is also currently menstruating. Her menstrual cycles are irregular and sporadic according to her [id number]. The patient does not use tampons, and she has no history of MRSA. Past Medical/Surgical History Medical Problems: (1) Down syndrome (2) Hyperinsulinemia (3) Hypothyroidism (4) Mild mental retardation Surgical Problems: (1) H/O atrial septal defect repair (2) History of open heart surgery Family History FH: CVA (cerebrovascular accident) FATHER Noncontributory Social History Smoking Status: Never Smoker Alcohol Use: none Housing Status: lives with family Allergies Coded Allergies: No Known Allergies (Unverified , 08/29/16) Home Medications Reported Home Medications Medications Dose Route/Sig Max Daily Dose Days Date Category Synthroid (Levothyroxine Sodium) 112 Mcg Tab 112 Mcg PO QAM 08/29/16 Reported Glucophage (Metformin Hcl) 500 Mg Tab 500 Mg PO QAM 08/29/16 Reported Current Inpatient Medications Current Inpatient Medications Medications (Trade) Dose Ordered Sig/Artur Route Start Time Stop Time Status Last Admin Dose Admin Sodium Chloride (Nss 1000ml) 1,000 ml @ 80 mls/hr [id number] IV 08/29/16 16:53 09/28/16 16:52 08/30/16 05:59 125 MLS/HR Acetaminophen (Tylenol Tab) 650 mg Q4H PRN PO 08/29/16 17:00 09/28/16 16:59 08/30/16 11:08 650 MG Ondansetron HCl 4 mg 4 mg Q6H PRN IV 08/29/16 17:00 09/28/16 16:59 Cefazolin Sodium 2000 mg/Dextrose 60 ml @ 100 mls/hr Q8H IV 08/29/16 22:00 09/08/16 21:59 08/30/16 13:28 100 MLS/HR Clindamycin Phosphate/Dextrose (Cleocin Iv/ Dextrose Add-[place] 50ML) 54 ml @ 100 mls/hr Q8H IV 08/29/16 20:00 08/31/16 19:59 08/30/16 11:09 100 MLS/HR Levothyroxine Sodium (Synthroid Tab) 112 mcg DAILYBB PO 08/30/16 06:00 09/29/16 05:59 08/30/16 06:01 112 MCG Perflutren Lipid Microsphere (Definity) 2 ml PRN PRN IV 08/30/16 14:15 08/30/16 23:59 08/30/16 14:12 2 ML Review of Systems Constitutional: + fever, No weakness Eyes: No worsening of vision ENT: No hearing loss Respiratory: + cough (last week- now resolved), No shortness of breath Cardiovascular: No chest pain Abdomen: No diarrhea, No nausea, No pain, No vomiting Musculoskeletal: + swelling (arms, since admission), No joint pain Genitourinary - Female: + problem reported (currently menstruating), No dysuria Integumentary: + color change (bright erythema of the upper extremities, chest , etc.), + rash, No itch Physical Exam Date Time Temp Pulse Resp B/P Pulse Ox O2 Delivery O2 Flow Rate FiO2 08/30/16 12:00 Room Air 08/30/16 12:00 37.3 89 20 124/82 94 Room Air 08/30/16 10:06 Room Air 08/30/16 07:16 36.8 89 24 88/65 96 Room Air 08/30/16 05:00 90/60 08/30/16 04:02 Room Air 08/30/16 03:10 36.8 92 20 87/59 95 Room Air 08/30/16 00:02 Room Air 08/30/16 00:00 36.8 90 22 93/59 95 Room Air 08/29/16 20:04 Room Air 08/29/16 19:59 36.9 96 20 131/73 96 Room Air 08/29/16 19:29 93 22 91/63 94 Room Air 08/29/16 18:44 36.7 08/29/16 18:00 87 16 109/61 92 Room Air 08/29/16 16:03 106 19 93/43 91 Room Air General Appearance: + obese, + pertinent finding (Down Syndrome) Head: normocephalic Eyes: normal inspection ENT: hearing grossly normal Neck: supple Respiratory/Chest: chest non-tender, lungs clear, normal breath sounds, no respiratory distress, no accessory muscle use Cardiovascular: regular rate, rhythm Abdomen/GI: normal bowel sounds, non tender, soft Back: normal inspection Extremities/Musculoskelatal: + swelling (bilateral arms, mild) Neurologic/Psych: alert, normal mood/affect Skin: + rash, + pertinent finding (bright splotchy erythema of the bilateral shoulders and upper extremities along with the left chest, neck, and back. Some mild blistering noted of the left shoulder. Erythema of the cheeks as well. Dry , peeling lips) Laboratory Results Item Value Date Time Blood Culture Received 08/29/16 1500 Blood Pending Blood Culture Received 08/29/16 1436 Blood Pending Urine Culture - Preliminary Resulted 08/29/16 1054 Urine , Clean Catch NO GROWTH - LESS THAN 1,000 COLONIES/... Group A Streptococcus Screen - Final Complete 08/29/16 0000 Throat SPECIMEN POSITIVE FOR GROUP A BETA ST... CHEST ONE VIEW PORTABLE CLINICAL HISTORY: Sepsis dyspnea COMPARISON STUDY: No previous studies for comparison. FINDINGS: Poor inspiratory volumes. Slight interstitial prominence. Mild cardiomegaly. IMPRESSION: Slight generalized interstitial prominence. No well-defined focal infiltrate. Last 24 Hours Test 08/29/16 14:39 08/29/16 17:44 08/29/16 20:20 08/30/16 04:27 Bedside Lactic Acid Venous 1.55 mmol/L Lactic Acid Level 1.1 mmol/L 1.5 mmol/L Influenza Type A (RT-PCR) Neg for Influ A Influenza Type B (RT-PCR) Neg for Influ B White Blood Count 20.90 K/uL Red Blood Count 3.77 M/uL Hemoglobin 11.1 g/dL Hematocrit 33.9 % Mean Corpuscular Volume 89.9 fL Mean Corpuscular Hemoglobin 29.4 pg Mean Corpuscular Hemoglobin Concent 32.7 g/dl Platelet Count 222 K/uL Mean Platelet Volume 9.6 fL Neutrophils (%) (Auto) 92.5 % Lymphocytes (%) (Auto) 4.0 % Monocytes (%) (Auto) 2.7 % Eosinophils (%) (Auto) 0.2 % Basophils (%) (Auto) 0.2 % Neutrophils # (Auto) 19.33 K/uL Lymphocytes # (Auto) 0.83 K/uL Monocytes # (Auto) 0.57 K/uL Eosinophils # (Auto) 0.04 K/uL Basophils # (Auto) 0.04 K/uL RDW Standard Deviation 57.7 fL RDW Coefficient of Variation 17.4 % Immature Granulocyte % (Auto) 0.4 % Immature Granulocyte # (Auto) 0.09 K/uL Sodium Level 141 mmol/L Potassium Level 3.8 mmol/L Chloride Level 108 mmol/L Carbon Dioxide Level 26 mmol/L Anion Gap 7.0 mmol/L Blood Urea Nitrogen 15 mg/dl Creatinine 1.30 mg/dl Est Creatinine Clear Calc Drug Dose 52.0 ml/min Estimated GFR () 57.8 Estimated GFR (Non- 49.9 BUN/Creatinine Ratio 11.6 Random Glucose 86 mg/dl Calcium Level 7.4 mg/dl Magnesium Level 2.2 mg/dl Thyroid Stimulating Hormone (TSH) 3.660 uIu/ml Chemistry Specimen Hemolysis Assessment & Plan Patient with Down Syndrome and sudden red and spreading rash on arms, chest, back, face, and stomach along with positive rapid test for strep, fever, and current menstrual cycle. The patient was placed on IV Ancef and IV Clindamycin, but her rash continues to spread and her creatinine increased slightly this morning. She is currently on Droplet precautions for possibility of scarlet fever, but this can be discontinued after 24 h of abx therapy (3:20pm this afternoon). Concerns for toxic shock syndrome or scalded skin syndrome in this patient with the severe erythema and mild tenderness to her rash. The most likely etiologies include Strep, Staph and MRSA. Will order MRSA nasal swab and procalcitonin. Will also change Ancef to Ceftaroline for now to include MRSA coverage as well. Continue Clindamycin today to complete 48 hours. Recommend having a very low threshold for transferring this patient if she begins to deteriorate. We will follow and adjust abx pending improvement. Plan: 1. MRSA nasal swab, Procalcitonin 2. D/C Ancef. Start Ceftaroline 3. Continue Clindamycin- total of 48 hours (anti-toxin) 4. Droplet precaution can D/C after 24 h 5. Low threshold for transfer if deterioration PROVIDER ADDENDUM: Patient examined and reviewed with Ms. Adorno. Agree with above assessment.
--- NOTE | 2016-08-30 15:11 | ECHOCARDIOGRAM REPORT ---
*NOTICE TO RECEIVING [employer] This information is strictly Confidential and protected under [place] law. [place] law prohibits you from making any further disclosure of this information unless further disclosure is expressly permitted by the written consent of the person to whom it pertains or is authorized by law. A general authorization for the release of medical or other information is not sufficient for this purpose. Hospital accepts no responsibility if the information is made available to any other person, INCLUDING THE PATIENT. Interpretation Summary * Name: ROSALVA HUGHES Study Date: 08/30/2016 01:29 PM BP: 124/82 mmHg * Patient Location: [facility] [place] HR: 89 * : 1970 (M/d/yyyy) Gender: Female Height: 57 in * Age: 46 yrs Ethnicity: CA Weight: 193 lb * Ordering Physician: JOE ALEXANDER. MICHAEL * Performed By: Jennifer Holley * * Reason For Study: MURMURS, FEVER, POSITIVE STREP CULTURE * BSA: 1.8 m2 * Grossly normal valvular structure and function. * -- Conclusions -- * With contrast echocardiography there is an outpocketing of contrast at the apex of the left vetricule. 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 * Ejection Fraction = 65-70%. * The right ventricular systolic function is normal. * Grossly normal valvular structure and function however, the study is limited and if endocarditis is suspected then consideration for a ADY should be given. Procedure Details * A complete two-dimensional transthoracic echocardiogram was performed (2D, M-mode, Doppler and color flow Doppler). * The study was technically difficult. * A contrast injection of Definity was performed to improve assessment of LV function. * Contrast was injected into an intravenous site in the left arm. * One vial of Definity ultrasound contrast was diluted in normal saline to a total volume of 10 ml. A total of '3' ml of solution was administered during imaging. * Lot # [id number] of Definity utilized for procedure. * Expiration date 09/01. * The attending nurse who injected the contrast agent was JOLEEN ABBOTT RN. Left Ventricle * The left ventricle is normal in size. * There is no thrombus. * There is normal left ventricular wall thickness. * With contrast echocardiography there is an outpocketing of contrast at the apex of the left vetricule. 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 * Ejection Fraction = 65-70%. Right Ventricle * The right ventricle is grossly normal size. * The right ventricular systolic function is normal. Atria * The left atrial size is normal. * Right atrial size is normal. * The interatrial septum is intact with no evidence for an atrial septal defect. Mitral Valve * The mitral valve anatomy is normal. * There is no vegetation seen on the mitral valve. * Significant mitral regurgitation is absent. Tricuspid Valve * The tricuspid valve anatomy is normal. * Significant tricuspid regurgitation is absent. Aortic Valve * The aortic valve is not well visualized. * No hemodynamically significant valvular aortic stenosis. * There is no significant aortic regurgitation. Great Vessels * The aortic root and proximal ascending aorta are normal sized. Pericardium/Pleural * There is no pericardial effusion. MMode 2D Measurements and Calculations IVSd 1.3 cm IVSs 1.7 cm LVIDd 3.7 cm LVIDs 2.2 cm LVPWd 1.1 cm LVPWs 1.9 cm IVS/LVPW 1.2 FS 39.3 % EDV(Teich) 57.0 ml ESV(Teich) 16.7 ml EF(Teich) 70.7 % EDV(cubed) 49.4 ml ESV(cubed) 11.0 ml EF(cubed) 77.7 % % IVS thick 32.0 % % LVPW thick 79.2 % LV mass(C)d 138.4 grams LV mass(C)dI 78.2 grams/m\S\2 LV mass(C)s 153.2 grams LV mass(C)sI 86.5 grams/m\S\2 SV(Teich) 40.3 ml SI(Teich) 22.8 ml/m\S\2 SV(cubed) 38.4 ml SI(cubed) 21.7 ml/m\S\2 ACS 1.1 cm asc Aorta Diam 2.6 cm LVOT diam 1.9 cm LVOT area 3.0 cm\S\2 LVAd ap4 35.1 cm\S\2 LVLd ap4 7.7 cm EDV(MOD-sp4) 131.5 ml EDV(sp4-el) 135.8 ml LVAs ap4 16.3 cm\S\2 LVLs ap4 6.1 cm ESV(MOD-sp4) 34.9 ml ESV(sp4-el) 37.1 ml EF(MOD-sp4) 73.5 % EF(sp4-el) 72.7 % LVAd ap2 34.3 cm\S\2 LVLd ap2 7.3 cm EDV(MOD-sp2) 132.0 ml EDV(sp2-el) 137.0 ml LVAs ap2 15.9 cm\S\2 LVLs ap2 6.1 cm ESV(MOD-sp2) 34.2 ml ESV(sp2-el) 35.4 ml EF(MOD-sp2) 74.1 % EF(sp2-el) 74.2 % LVLd %diff -5.74 % EDV(MOD-bp) 132.9 ml LVLs %diff -10 % ESV(MOD-bp) 35.0 ml EF(MOD-bp) 73.7 % SV(MOD-sp4) 96.7 ml SI(MOD-sp4) 54.6 ml/m\S\2 SV(MOD-sp2) 97.8 ml SI(MOD-sp2) 55.2 ml/m\S\2 SV(MOD-bp) 97.9 ml SI(MOD-bp) 55.3 ml/m\S\2 SV(sp4-el) 98.8 ml SI(sp4-el) 55.8 ml/m\S\2 SV(sp2-el) 101.6 ml SI(sp2-el) 57.4 ml/m\S\2 Doppler Measurements and Calculations MV E max [place] 141.6 cm/sec MV A max [place] 82.0 cm/sec MV E/A 1.7 MV V2 max 166.1 cm/sec MV max PG 11.0 mmHg MV V2 mean 83.0 cm/sec MV mean PG 3.4 mmHg MV V2 VTI 40.0 cm MVA(VTI) 1.6 cm\S\2 MV dec time 0.17 sec Ao V2 max 256.3 cm/sec Ao max PG 26.3 mmHg Ao max PG (full) 20.4 mmHg Ao V2 mean 194.7 cm/sec Ao mean PG 16.6 mmHg Ao mean PG (full) 13.8 mmHg Ao V2 VTI 49.4 cm [place](I,A) 1.3 cm\S\2 [place](I,D) 1.3 cm\S\2 [place](V,A) 1.4 cm\S\2 [place](V,D) 1.4 cm\S\2 LV V1 max PG 5.9 mmHg LV V1 mean PG 2.8 mmHg LV V1 max 121.0 cm/sec LV V1 mean 76.5 cm/sec LV V1 VTI 21.0 cm SV(LVOT) 62.3 ml SI(LVOT) 35.2 ml/m\S\2 PA V2 max 95.6 cm/sec PA max PG 3.7 mmHg TR max [place] 289.9 cm/sec
[2016-08-30] MEDS: CEFTAROLINE FOSAMIL INJ 600 MG in SODIUM CHLORIDE 0.9% 250ML 250 ML IV SCH (16:05)
[2016-08-31] VITALS (7 sets, daily range): BP systolic 106–115; BP diastolic 52–64; PULSE 70–91; TEMP 36.6–37.6; O2SAT 93–98
[2016-08-31] MEDS: CLINDAMYCIN IV 600 MG in DEXTROSE 5% ADD-VANTAGE 50ML 50 ML IV SCH ×2 (04:00→12:17)
[2016-08-31] MEDS: CEFTAROLINE FOSAMIL INJ 600 MG in SODIUM CHLORIDE 0.9% 250ML 250 ML IV SCH ×2 (04:49→16:01)
[2016-08-31] MEDS: LEVOTHYROXINE 112 MCG TAB PO SCH (06:04)
[2016-08-31] MEDS: SODIUM CHLORIDE 0.9% 1000ML 1,000 ML IV SCH (06:05)
[2016-08-31 06:34] LABS: HEMATOCRIT 30.9 % (37-47); MEAN CELL VOLUME 87.3 fL (80-100); MEAN CORPUSCULAR HEMOGLOBIN 29.4 pg (25-34); MEAN CORPUSCULAR HGB CONC 33.7 g/dl (32-36); MEAN PLATELET VOLUME 9.2 fL (7.4-10.4); PLATELET COUNT 238 K/uL (130-400); RED BLOOD COUNT 3.54 M/uL (4.2-5.4); WHITE BLOOD COUNT 14.69 K/uL (4.8-10.8)
[2016-08-31 07:10] LABS: BUN/CREATININE RATIO 10.9 (10-20); CREATININE 1.1 mg/dl (0.60-1.20); POTASSIUM 3.6 mmol/L (3.5-5.1)
--- NOTE | 2016-08-31 11:58 | Progress Note ---
Medicine Progress Note Date & Time of Visit: Aug 31, 2016 at 11:45. Subjective Pt was seen and examined Sitting in bed comfortable with no distress Pt said that she feels better her rash is fading away very slowly denies any itchiness, chest pain, fever, chills and SOB Objective Last 8 Hrs Date Time Temp Pulse Resp B/P Pulse Ox O2 Delivery O2 Flow Rate FiO2 08/31/16 11:33 36.7 86 18 106/61 95 08/31/16 08:21 36.6 76 18 112/57 97 08/31/16 08:00 Room Air 08/31/16 05:00 36.8 83 22 114/52 94 Room Air 08/31/16 04:00 Room Air Physical Exam: General- no acute distress, very pleasant Head- atraumatic Eyes- PERRL, EOMI ENT- oropharynx clear Neck- supple, no JVD Lungs- clear to auscultation and percussion Heart- +murmur, regular Abdomen- normal bowel sounds, soft Extremities-no calf tenderness, swelling in the left hand Neuro- alert, awake, PERRL, EOMI; no facial palsy Skin- warm & dry, +rash Laboratory Results: Last 24 Hours Test 08/31/16 06:24 08/31/16 06:27 White Blood Count 14.69 K/uL Red Blood Count 3.54 M/uL Hemoglobin 10.4 g/dL Hematocrit 30.9 % Mean Corpuscular Volume 87.3 fL Mean Corpuscular Hemoglobin 29.4 pg Mean Corpuscular Hemoglobin Concent 33.7 g/dl RDW Standard Deviation 57.0 fL RDW Coefficient of Variation 17.8 % Platelet Count 238 K/uL Mean Platelet Volume 9.2 fL C-Reactive Protein 15.30 mg/dl Procalcitonin 1.11 ng/mL Sodium Level 146 mmol/L Potassium Level 3.6 mmol/L Chloride Level 112 mmol/L Carbon Dioxide Level 22 mmol/L Anion Gap 12.0 mmol/L Blood Urea Nitrogen 12 mg/dl Creatinine 1.10 mg/dl Est Creatinine Clear Calc Drug Dose 63.2 ml/min Estimated GFR () 70.7 Estimated GFR (Non- 61.0 BUN/Creatinine Ratio 10.9 Random Glucose 100 mg/dl Calcium Level 7.0 mg/dl Date/Time Source Procedure Growth Status 08/30/16 16:05 Nasal MRSA DNA Surveillance Screen - Final Specimen Negative for MRSA by DNA Probe Complete Assessment & Plan SEPSIS DUE TO STREP A WBC on admission 27K leukocytosis trending down to 14 K today VS stable Throat cx positive for strep A Received Dapto and Imipenem in ED Case discussed with ID during admission recommends to start Ancef and add clindamycin for 48 hrs for antitoxin effect Abx was changed yesterday to ceftarodine by ID, Clinda will discontinue today Blood cx and urine cx has no growth Case discussed with ID YUDITH Franco and will follow up ID recommendation No sign for Toxic shock syndrome ACUTE KIDNEY INJURY Mostly related to sepsis Creatine wnl Continue monitor BMP will avoid nephrotoxic agent HYPERNATREMIA Mostly related to IVF will change fluid to 1/2NS continue monitor BMP RASH Possible Scarlet fever From strep A Improved CONGENITAL HEART DISEASE asymptomatic ECHO * With contrast echocardiography there is an outpocketing of contrast at the apex of the left vetricule. 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 * Ejection Fraction = 65-70%. * The right ventricular systolic function is normal. . 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 07/2016 - hold metformin, check BSG Stable DVT PROPHYLAXIS - SCDs CODE STATUS FULL CODE DISPOSITION Possible discharge in tomorrow Consultants: ID Current Inpatient Medications: Current Inpatient Medications Medications (Trade) Dose Ordered Sig/Artur Route Start Time Stop Time Status Last Admin Dose Admin Acetaminophen (Tylenol Tab) 650 mg Q4H PRN PO 08/29/16 17:00 09/28/16 16:59 08/30/16 21:42 650 MG Ondansetron HCl 4 mg 4 mg Q6H PRN IV 08/29/16 17:00 09/28/16 16:59 Clindamycin Phosphate/Dextrose (Cleocin Iv/ Dextrose Add-[place] 50ML) 54 ml @ 100 mls/hr Q8H IV 08/29/16 20:00 08/31/16 19:59 08/31/16 04:00 100 MLS/HR Levothyroxine Sodium 112 mcg 112 mcg DAILYBB PO 08/30/16 06:00 09/29/16 05:59 08/31/16 06:04 112 MCG Ceftaroline Fosamil 600 mg/ Sodium Chloride 270 ml @ 250 mls/hr Q12H IV 08/30/16 16:00 09/09/16 14:44 08/31/16 04:49 250 MLS/HR Sodium Chloride (1/2 Nss 1000ml) 1,000 ml @ 80 mls/hr [id number] IV 08/31/16 08:00 09/30/16 07:59
[2016-08-31] MEDS: SODIUM CHLORIDE 0.45% 1000ML 1,000 ML IV SCH ×2 (12:17→20:38)
[2016-08-31] MEDS: ACETAMINOPHEN 325 MG TAB PO PRN (13:54)
--- NOTE | 2016-08-31 13:56 | Infectious Disease Progress Nt ---
Progress Note Date of Service Aug 31, 2016. Subjective Pt evaluation today including: conversation w/ patient, conversation w/ family (Brother), physical exam, chart review, lab review, review of studies, conversation w/ pmo consultant (Dr. Valerio), review of inpatient medication list The patient appears to be improved today slightly. Her rash is slowly dissipating. Her white blood cell count was 14.69 this morning. Her hemoglobin was 10.4. Her repeat creatinine was 1.10. Her procalcitonin was 1.11. The patient continues on IV ceftaroline. Her clindamycin is going to discontinue today. She has received 48 hours. She has not had any continued fever, and her blood pressure has been stable. Her MRSA nasal screen was negative, and her blood cultures are showing no growth to date. Her urine culture was also finalized with no growth. The patient has no real complaints to offer this morning. She complains of no pain. All Other Systems: Reviewed and Negative Medications Current Inpatient Medications Medications (Trade) Dose Ordered Sig/Artur Route Start Time Stop Time Status Last Admin Dose Admin Acetaminophen (Tylenol Tab) 650 mg Q4H PRN PO 08/29/16 17:00 09/28/16 16:59 08/30/16 21:42 650 MG Ondansetron HCl 4 mg 4 mg Q6H PRN IV 08/29/16 17:00 09/28/16 16:59 Clindamycin Phosphate/Dextrose (Cleocin Iv/ Dextrose Add-[place] 50ML) 54 ml @ 100 mls/hr Q8H IV 08/29/16 20:00 08/31/16 19:59 08/31/16 12:17 100 MLS/HR Levothyroxine Sodium 112 mcg 112 mcg DAILYBB PO 08/30/16 06:00 09/29/16 05:59 08/31/16 06:04 112 MCG Ceftaroline Fosamil 600 mg/ Sodium Chloride 270 ml @ 250 mls/hr Q12H IV 08/30/16 16:00 09/09/16 14:44 08/31/16 04:49 250 MLS/HR Sodium Chloride (1/2 Nss 1000ml) 1,000 ml @ 80 mls/hr [id number] IV 08/31/16 08:00 09/30/16 07:59 08/31/16 12:17 80 MLS/HR Objective Vital Signs Date Time Temp Pulse Resp B/P Pulse Ox O2 Delivery O2 Flow Rate FiO2 08/31/16 13:45 37.6 08/31/16 12:00 Room Air 08/31/16 11:33 36.7 86 18 106/61 95 08/31/16 08:21 36.6 76 18 112/57 97 08/31/16 08:00 Room Air 08/31/16 05:00 36.8 83 22 114/52 94 Room Air 08/31/16 04:00 Room Air 08/31/16 00:05 37.4 91 18 115/64 93 Room Air 08/31/16 00:00 Room Air 08/30/16 20:04 Room Air 08/30/16 20:00 37.2 93 18 112/71 96 08/30/16 16:00 36.9 76 18 110/56 96 08/30/16 16:00 96 Room Air Physical Exam General Appearance: no apparent distress, + obese, + pertinent finding (Down syndrome) Eyes: normal inspection, sclerae normal ENT: hearing grossly normal Neck: supple, trachea midline Respiratory/Chest: no respiratory distress, no accessory muscle use Cardiovascular: regular rate, rhythm Extremities: normal range of motion, + swelling (left arm slightly swollen- mostly around previous IV site at antecubital space) Neurologic/Psychiatric: alert, normal mood/affect Skin: + rash (Mild to moderate continued erythema of the left chest, back, and bilateral upper extremities. Much improved overall. Nontender to touch. Mild warmth to palpation.) Laboratory Results Item Value Date Time MRSA DNA Surveillance Screen Aren Batch 08/30/16 1605 Nasal Pending MRSA DNA Surveillance Screen - Final Complete 08/30/16 1605 Nasal Specimen Negative for MRSA by DNA Probe Blood Culture - Preliminary Resulted 08/29/16 1500 Blood NO GROWTH TO DATE. Blood Culture - Preliminary Resulted 08/29/16 1436 Blood NO GROWTH TO DATE. Last 24 Hours Test 08/31/16 06:24 08/31/16 06:27 White Blood Count 14.69 K/uL Red Blood Count 3.54 M/uL Hemoglobin 10.4 g/dL Hematocrit 30.9 % Mean Corpuscular Volume 87.3 fL Mean Corpuscular Hemoglobin 29.4 pg Mean Corpuscular Hemoglobin Concent 33.7 g/dl RDW Standard Deviation 57.0 fL RDW Coefficient of Variation 17.8 % Platelet Count 238 K/uL Mean Platelet Volume 9.2 fL Erythrocyte Sedimentation Rate 70 mm/hr C-Reactive Protein 15.30 mg/dl Procalcitonin 1.11 ng/mL Sodium Level 146 mmol/L Potassium Level 3.6 mmol/L Chloride Level 112 mmol/L Carbon Dioxide Level 22 mmol/L Anion Gap 12.0 mmol/L Blood Urea Nitrogen 12 mg/dl Creatinine 1.10 mg/dl Est Creatinine Clear Calc Drug Dose 63.2 ml/min Estimated GFR () 70.7 Estimated GFR (Non- 61.0 BUN/Creatinine Ratio 10.9 Random Glucose 100 mg/dl Calcium Level 7.0 mg/dl Assessment and Plan Patient with Down Syndrome and sudden red and spreading rash on arms, chest, back, face, and stomach along with positive rapid test for strep, fever, and current menstrual cycle. The patient is currently on IV clindamycin and IV ceftaroline. The patient's clindamycin will discontinue today after 48 hours are complete. I feel that she likely would benefit from at least 1 more day of IV ceftaroline. If she continues to improve, she may be ready for discharge tomorrow. She likely will need continued p.o. antibiotic therapy following discontinuation of IV antibiotics. Will repeat ESR and CRP today. Plan: 1. Continue IV ceftaroline 2. Repeat ESR/CRP 3. Consider transition to p.o. tomorrow PROVIDER ADDENDUM: Patient reviewed with Ms. Adorno. Agree with above assessment.
[2016-09-01 00:01] VITALS: BP 112/70; PULSE 76; TEMP 36.8; O2SAT 91
[2016-09-01] MEDS: ACETAMINOPHEN 325 MG TAB PO PRN (03:24)
[2016-09-01] MEDS: CEFTAROLINE FOSAMIL INJ 600 MG in SODIUM CHLORIDE 0.9% 250ML 250 ML IV SCH (03:32)
[2016-09-01 04:00] VITALS: BP 111/60; PULSE 82; TEMP 37.5; O2SAT 93
[2016-09-01] MEDS: LEVOTHYROXINE 112 MCG TAB PO SCH (06:46)
[2016-09-01 06:59] LABS: HEMATOCRIT 31.8 % (37-47); MEAN CELL VOLUME 87.6 fL (80-100); MEAN CORPUSCULAR HEMOGLOBIN 29.2 pg (25-34); MEAN CORPUSCULAR HGB CONC 33.3 g/dl (32-36); MEAN PLATELET VOLUME 9.5 fL (7.4-10.4); PLATELET COUNT 284 K/uL (130-400); RED BLOOD COUNT 3.63 M/uL (4.2-5.4); WHITE BLOOD COUNT 11.94 K/uL (4.8-10.8)
[2016-09-01 07:32] LABS: BUN/CREATININE RATIO 10.6 (10-20); CALCIUM 7.3 mg/dl (8.5-10.1); CREATININE 0.97 mg/dl (0.60-1.20); POTASSIUM 3.7 mmol/L (3.5-5.1)
[2016-09-01 08:01] VITALS: BP 124/62; PULSE 76; TEMP 36.7; O2SAT 18; O2SAT 97
--- NOTE | 2016-09-01 10:56 | Progress Note ---
Medicine Progress Note Date & Time of Visit: Sep 01, 2016 at 10:46. Subjective Pt was seen and examined Sitting in chair very comfortable with no distress with family member at bedside She said that she feels fine her rash is getting much better and she denies any itchiness denies any chest pain, palpitation, dizziness and sob Objective Last 8 Hrs Date Time Temp Pulse Resp B/P Pulse Ox O2 Delivery O2 Flow Rate FiO2 09/01/16 08:01 36.7 76 18 124/62 97 09/01/16 08:00 Room Air 09/01/16 04:00 Room Air 09/01/16 04:00 37.5 82 18 111/60 93 Room Air Physical Exam: General- no acute distress, very pleasant Head- atraumatic Eyes- PERRL, EOMI ENT- oropharynx clear Neck- supple, no JVD Lungs- clear to auscultation and percussion Heart- +murmur, regular rate and rhythm Abdomen- normal bowel sounds, soft Extremities-no calf tenderness, swelling in the left hand Neuro- alert, awake, PERRL, EOMI; no facial palsy Skin- warm & dry, +rash improved Laboratory Results: Last 24 Hours Test 09/01/16 06:25 White Blood Count 11.94 K/uL Red Blood Count 3.63 M/uL Hemoglobin 10.6 g/dL Hematocrit 31.8 % Mean Corpuscular Volume 87.6 fL Mean Corpuscular Hemoglobin 29.2 pg Mean Corpuscular Hemoglobin Concent 33.3 g/dl RDW Standard Deviation 58.1 fL RDW Coefficient of Variation 17.9 % Platelet Count 284 K/uL Mean Platelet Volume 9.5 fL Sodium Level 144 mmol/L Potassium Level 3.7 mmol/L Chloride Level 111 mmol/L Carbon Dioxide Level 23 mmol/L Anion Gap 10.0 mmol/L Blood Urea Nitrogen 10 mg/dl Creatinine 0.97 mg/dl Est Creatinine Clear Calc Drug Dose 71.7 ml/min Estimated GFR () 82.3 Estimated GFR (Non- 71.0 BUN/Creatinine Ratio 10.6 Random Glucose 88 mg/dl Calcium Level 7.3 mg/dl Assessment & Plan SEPSIS DUE TO STREP A WBC on admission 27K leukocytosis trending down to 14 K ---> 11K today ESR and trending down, elevated procalcitonin VS stable Throat cx positive for strep A Received Dapto and Imipenem in ED Case discussed with ID during admission recommends to start Ancef and add clindamycin for 48 hrs for antitoxin effect Abx was changed yesterday to ceftarodine by ID, Clinda d/c yesterday Blood cx and urine cx no growth Will follow ID recommendation for transition to PO abx with Bactrim DS BID and PO Keflex 500 mg QID x 10 days She will follow up with ID as an outpatient next week No sign for Toxic shock syndrome Clinically stable ACUTE KIDNEY INJURY Mostly related to sepsis Creatine wnl Continue monitor BMP will avoid nephrotoxic agent HYPERNATREMIA Mostly related to IVF D/C IVF continue monitor BMP stable RASH Possible Scarlet fever From strep A Improved CONGENITAL HEART DISEASE asymptomatic ECHO * With contrast echocardiography there is an outpocketing of contrast at the apex of the left vetricule. 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 * Ejection Fraction = 65-70%. * The right ventricular systolic function is normal. . 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 07/2016 - hold metformin, check BSG Stable DVT PROPHYLAXIS - SCDs CODE STATUS FULL CODE DISPOSITION Tentative discharge today Bactrim DS BID and PO Keflex 500 mg QID x 10 days She will follow up with ID as an outpatient next week Consultants: BETY Current Inpatient Medications: Current Inpatient Medications Medications (Trade) Dose Ordered Sig/Artur Route Start Time Stop Time Status Last Admin Dose Admin Acetaminophen (Tylenol Tab) 650 mg Q4H PRN PO 08/29/16 17:00 09/28/16 16:59 09/01/16 03:24 650 MG Ondansetron HCl (Zofran Inj) 4 mg Q6H PRN IV 08/29/16 17:00 09/28/16 16:59 Levothyroxine Sodium 112 mcg 112 mcg DAILYBB PO 08/30/16 06:00 09/29/16 05:59 09/01/16 06:46 112 MCG Ceftaroline Fosamil/Sodium Chloride (Teflaro Inj/Nss 250ml) 270 ml @ 250 mls/hr Q12H IV 08/30/16 16:00 09/09/16 14:44 09/01/16 03:32 250 MLS/HR
--- NOTE | 2016-09-01 11:10 | Infectious Disease Progress Nt ---
Progress Note Date of Service Sep 01, 2016. Subjective Pt evaluation today including: conversation w/ patient, conversation w/ family (son), physical exam, chart review, lab review, review of studies, conversation w/ behavioral consultant, review of inpatient medication list WBC count 11.94 this morning. Repeat ESR was 70, and repeat CRP was mildly decreased to 15.30. Creatinine continues to be stable at 0.97. Blood cultures continue to show no growth to date. The patient is much improved today. She is ready to go home. She continues to have some very mild rash. She continues to be afebrile. She did have a loose stool overnight, but no watery diarrhea. All Other Systems: Reviewed and Negative Medications Current Inpatient Medications Medications (Trade) Dose Ordered Sig/Artur Route Start Time Stop Time Status Last Admin Dose Admin Acetaminophen (Tylenol Tab) 650 mg Q4H PRN PO 08/29/16 17:00 09/28/16 16:59 09/01/16 03:24 650 MG Ondansetron HCl (Zofran Inj) 4 mg Q6H PRN IV 08/29/16 17:00 09/28/16 16:59 Levothyroxine Sodium 112 mcg 112 mcg DAILYBB PO 08/30/16 06:00 09/29/16 05:59 09/01/16 06:46 112 MCG Ceftaroline Fosamil/Sodium Chloride (Teflaro Inj/Nss 250ml) 270 ml @ 250 mls/hr Q12H IV 08/30/16 16:00 09/09/16 14:44 09/01/16 03:32 250 MLS/HR Objective Vital Signs Date Time Temp Pulse Resp B/P Pulse Ox O2 Delivery O2 Flow Rate FiO2 09/01/16 08:01 36.7 76 18 124/62 97 09/01/16 08:00 Room Air 09/01/16 04:00 Room Air 09/01/16 04:00 37.5 82 18 111/60 93 Room Air 09/01/16 00:01 36.8 76 20 112/70 91 Room Air 09/01/16 00:01 Room Air 08/31/16 20:00 Room Air 08/31/16 19:17 36.6 70 20 110/62 98 Room Air 08/31/16 16:00 Room Air 08/31/16 15:49 36.8 80 20 112/61 94 Room Air 08/31/16 13:45 37.6 08/31/16 12:00 Room Air 08/31/16 11:33 36.7 86 18 106/61 95 Physical Exam General Appearance: no apparent distress, + obese Eyes: normal inspection, sclerae normal ENT: hearing grossly normal Neck: supple, trachea midline Respiratory/Chest: no respiratory distress, no accessory muscle use Cardiovascular: regular rate, rhythm Extremities: normal range of motion, + pertinent finding (continued mild swelling of the left arm- much improved) Neurologic/Psychiatric: alert, normal mood/affect Skin: warm/dry, + rash (Mild continued erythema of the upper extremities, but the erythema of her chest and back has mostly resolved. She has no continued spread. Slightly dry skin now on arms.) Laboratory Results Item Value Date Time MRSA DNA Surveillance Screen Aren Batch 08/30/16 1605 Nasal Pending Blood Culture - Preliminary Resulted 08/29/16 1436 Blood NO GROWTH TO DATE. Blood Culture - Preliminary Resulted 08/29/16 1500 Blood NO GROWTH TO DATE. Last 24 Hours Test 09/01/16 06:25 White Blood Count 11.94 K/uL Red Blood Count 3.63 M/uL Hemoglobin 10.6 g/dL Hematocrit 31.8 % Mean Corpuscular Volume 87.6 fL Mean Corpuscular Hemoglobin 29.2 pg Mean Corpuscular Hemoglobin Concent 33.3 g/dl RDW Standard Deviation 58.1 fL RDW Coefficient of Variation 17.9 % Platelet Count 284 K/uL Mean Platelet Volume 9.5 fL Sodium Level 144 mmol/L Potassium Level 3.7 mmol/L Chloride Level 111 mmol/L Carbon Dioxide Level 23 mmol/L Anion Gap 10.0 mmol/L Blood Urea Nitrogen 10 mg/dl Creatinine 0.97 mg/dl Est Creatinine Clear Calc Drug Dose 71.7 ml/min Estimated GFR () 82.3 Estimated GFR (Non- 71.0 BUN/Creatinine Ratio 10.6 Random Glucose 88 mg/dl Calcium Level 7.3 mg/dl Assessment and Plan Patient with Down Syndrome and sudden red and spreading rash with positive rapid test for strep. The patient is currently on IV ceftaroline. She is much improved today. Will transition to PO Bactrim DS BID and PO Keflex 500 mg QID x 10 days. She will need ID follow up as an outpatient next week. Final length of abx will be determined by further improvement. Otherwise, she is OK for D/C from ID perspective. Plan: 1. Transition to PO Bactrim and Keflex x 10 days PROVIDER ADDENDUM: Pt. reviewed with Ms. Adorno. Agree with above assessment.
[2016-09-01 11:51] VITALS: BP 140/76; PULSE 76; TEMP 36.8; O2SAT 95
[2016-09-01] MEDS ORDERED: CEPHALEXIN MONOHYDRATE 500 MG CAP PO SCH (13:00)
[2016-09-01] MEDS ORDERED: SULF-183 PO (14:16)
[2016-09-01] MEDS ORDERED: KFL500 PO (14:16)
--- NOTE | 2016-09-01 14:24 | Discharge Instructions ---
Discharge Instructions Admission Reason for Admission: Sepsis Discharge Discharge Diagnosis / Problem: Strep A, Rash, Acute kidney failure Discharge Goals Goal(s): Decrease discomfort, Improve function, Improve disease control Activity Recommendations Activity Limitations: resume your previous activity (as tolerated) . Instructions / Follow-Up Instructions / Follow-Up Follow up with your primary care provider Dr. Bhandari on Sep 06 at 11:10 am Please follow up with Infectious Disease next week, they will call you to schedule the appointment Please complete antibiotic course with Bactrim DS twice a day and PO Keflex 500 mg 4xtimes a day for 10 days Current Hospital Diet Patient's current hospital diet: Regular Diet Discharge Diet Recommended Diet: Regular Diet Pending Studies Studies pending at discharge: no Medical Emergencies . Who to Call and When: Medical Emergencies: If at any time you feel your situation is an emergency, please call 911 immediately. . Non-Emergent Contact Non-Emergency issues call your: Primary Care Provider Call Non-Emergent contact if: you have a fever, you have any medication questions . . "Provider Documentation" section prepared by Phil Valerio. VTE Core Measure Inpt VTE Proph given/why not?: SCD's
[2016-09-01 14:35] VITALS: BP 140/76; PULSE 76; TEMP 36.8; O2SAT 95
[2016-09-01] MEDS ORDERED: SULFAMETHOXAZOLE/TRIMETHOPRIM DS 800/160MG TAB PO SCH (21:00)
--- NOTE | 2016-09-03 21:04 | Discharge Summary ---
Discharge Summary Admission Date: Aug 29, 2016 at 16:59 Discharge Date: Sep 01, 2016 Discharge Disposition: Home Principal Diagnosis: Sepsis Secondary Diagnoses/Problems: Strep A Rash Acute kidney failure CONGENITAL HEART DISEASE Hypernatremia Procedures: ECHO Interpretation Summary * Name: ROSALVA HUGHES Study Date: 08/30/2016 01:29 PM BP: 124/82 mmHg * Patient Location: 209 HR: 89 * : 1970 (M/d/yyyy) Gender: Female Height: 57 in * Age: 46 yrs Ethnicity: [place] Weight: 193 lb * Ordering Physician: JOE ALEXANDER. MICHAEL * Performed By: Jennifer Holley * * Reason For Study: MURMURS, FEVER, POSITIVE STREP CULTURE * BSA: 1.8 m2 * Grossly normal valvular structure and function. * -- Conclusions -- * With contrast echocardiography there is an outpocketing of contrast at the apex of the left vetricule. 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 * Ejection Fraction = 65-70%. * The right ventricular systolic function is normal. * Grossly normal valvular structure and function however, the study is limited and if endocarditis is suspected then consideration for a ADY should be given. Procedure Details * A complete two-dimensional transthoracic echocardiogram was performed (2D, M- mode, Doppler and color flow Doppler). * The study was technically difficult. * A contrast injection of Definity was performed to improve assessment of LV function. * Contrast was injected into an intravenous site in the left arm. * One vial of Definity ultrasound contrast was diluted in normal saline to a total volume of 10 ml. A total of '3' ml of solution was administered during imaging. * Lot # [id number] of Definity utilized for procedure. * Expiration date 09/01. * The attending nurse who injected the contrast agent was JOLEEN ABBOTT RN. Left Ventricle * The left ventricle is normal in size. * There is no thrombus. * There is normal left ventricular wall thickness. * With contrast echocardiography there is an outpocketing of contrast at the apex of the left vetricule. 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 * Ejection Fraction = 65-70%. Right Ventricle * The right ventricle is grossly normal size. * The right ventricular systolic function is normal. Atria * The left atrial size is normal. * Right atrial size is normal. * The interatrial septum is intact with no evidence for an atrial septal defect. Mitral Valve * The mitral valve anatomy is normal. * There is no vegetation seen on the mitral valve. * Significant mitral regurgitation is absent. Tricuspid Valve * The tricuspid valve anatomy is normal. * Significant tricuspid regurgitation is absent. Aortic Valve * The aortic valve is not well visualized. * No hemodynamically significant valvular aortic stenosis. * There is no significant aortic regurgitation. Great Vessels * The aortic root and proximal ascending aorta are normal sized. Pericardium/Pleural * There is no pericardial effusion. Consultations: ID Medication Reconciliation New Medications: Cephalexin Monohydrate (Cephalexin) 500 Mg Cap 500 MG PO QID for 10 Days, #40 CAP Sulfamethoxazole-Trimethoprim (Smz-Tmp Ds) 1 Tab Tab 1 TAB PO Q12 for 10 Days, #20 TAB Continued Medications: Levothyroxine Sodium (Synthroid) 112 Mcg Tab 112 MCG PO QAM, TAB Metformin Hcl (Glucophage) 500 Mg Tab 500 MG PO QAM, TAB Admission Information HPI (per Admitting provider): 46 year old female who presents to the ER with fever and rash. Patient has Down' s syndrome and some history is obtained from her brother who is at the bedside. He reports that she was at [employer] today and they noted a rash on her right upper arm with a couple of small blisters. She was seen at [facility] and was noted to be febrile and the rash was spreading over both arms and her trunk. Patient denies any complaints. She reports the rash is not pruritic. She denies chills or body aches. Brother reports she has been in her usual state of health. No reports of chest pain or shortness of breath. Denies throat soreness or difficulty swallowing. She has chronic edema and venous changes to her BLLE which are unchanged. No abdominal pain, nausea, vomiting, or diarrhea. No urinary symptoms. Denies lightheadedness, dizziness, or syncopal events. In the ER, patient is febrile 39.4 and tachycardic in the 110s. BP stable. Lactic acid is negative. Rapid strep was positive. Patient was given IVF, Tylenol, Daptomycin, and Imipenem. Physical Exam (per Admitting): General Appearance: no apparent distress Head: normocephalic Eyes: normal inspection ENT: hearing grossly normal, + pharyngeal erythema Neck: supple, no JVD Respiratory/Chest: lungs clear, normal breath sounds, no respiratory distress Cardiovascular: + tachycardia (regular rhythm), + systolic murmur, + pertinent finding (trace edema BLLE ) Abdomen/GI: normal bowel sounds, non tender, soft Extremities/Musculoskelatal: normal inspection, no calf tenderness Neurologic/Psych: no motor/sensory deficits, alert, oriented x 3, + pertinent finding (hx Downs syndrome, mild mental retardation) Skin: + rash (flat reddened, non blanching, noted over BLUE and trunk; two small fluid filled blisters on the posterior aspect of the right upper arm) Hospital Course SEPSIS DUE TO STREP A WBC on admission 27K leukocytosis trending down to 14 K ---> 11K today ESR and trending down, elevated procalcitonin VS stable Throat cx positive for strep A Received Dapto and Imipenem in ED Case discussed with ID during admission recommends to start Ancef and add clindamycin for 48 hrs for antitoxin effect Abx was changed yesterday to ceftarodine by ID, Clinda d/c yesterday Blood cx and urine cx no growth Will follow ID recommendation for transition to PO abx with Bactrim DS BID and PO Keflex 500 mg QID x 10 days She will follow up with ID as an outpatient next week No sign for Toxic shock syndrome Clinically stable ACUTE KIDNEY INJURY Mostly related to sepsis Creatine wnl Continue monitor BMP will avoid nephrotoxic agent HYPERNATREMIA Mostly related to IVF D/C IVF continue monitor BMP stable RASH Possible Scarlet fever From strep A Improved CONGENITAL HEART DISEASE asymptomatic ECHO * With contrast echocardiography there is an outpocketing of contrast at the apex of the left vetricule. 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 * Ejection Fraction = 65-70%. * The right ventricular systolic function is normal. . 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 Discharge Instructions Discharge Instructions Admission Reason for Admission: Sepsis Discharge Discharge Diagnosis / Problem: Strep A, Rash, Acute kidney failure Discharge Goals Goal(s): Decrease discomfort, Improve function, Improve disease control Activity Recommendations Activity Limitations: resume your previous activity (as tolerated) . Instructions / Follow-Up Instructions / Follow-Up Follow up with your primary care provider Dr. Bhandari on Sep 06 at 11:10 am Please follow up with Infectious Disease next week, they will call you to schedule the appointment Please complete antibiotic course with Bactrim DS twice a day and PO Keflex 500 mg 4xtimes a day for 10 days Current Hospital Diet Patient's current hospital diet: Regular Diet Discharge Diet Recommended Diet: Regular Diet Pending Studies Studies pending at discharge: no Medical Emergencies . Who to Call and When: Medical Emergencies: If at any time you feel your situation is an emergency, please call 911 immediately. . Non-Emergent Contact Non-Emergency issues call your: Primary Care Provider Call Non-Emergent contact if: you have a fever, you have any medication questions . . "Provider Documentation" section prepared by Phil Valerio. VTE Core Measure Inpt VTE Proph given/why not?: SCD's Additional Copies To Rodrigue Bhandari D.O.
[2017-03-01] MEDS ORDERED: LEVO112T2 PO (14:38)
[2017-03-09] MEDS ORDERED: CEPH500C2 PO (13:42)
[2017-03-09] MEDS ORDERED: FURO-85 PO (13:42)
[2017-03-09] MEDS ORDERED: LCTX PO (13:42)
[2017-03-09] MEDS ORDERED: VLTG EXT (13:46)
== END 2016-09-01 15:18 | disposition home or self-care (01) | DRG 872 ==
LOC: ENRESERVTM → ENRESERVDT → C.EDB 13:08 → C.2E 16:59 → EDBEDREQ 17:33
PROVIDERS: ADMIT Internal Medicine; ATTEND Internal Medicine
DX: A40.0 Sepsis due to streptococcus, group A (principal); A38.9 Scarlet fever, uncomplicated; N17.9 Acute kidney failure, unspecified; E87.0 Hyperosmolality and hypernatremia; Z68.41 Body mass index [BMI] 40.0-44.9, adult; J02.0 Streptococcal pharyngitis; E03.9 Hypothyroidism, unspecified; E16.1 Other hypoglycemia; E66.9 Obesity, unspecified; Q24.9 Congenital malformation of heart, unspecified; Q90.9 Down syndrome, unspecified; Z79.84 Long term (current) use of oral hypoglycemic drugs; Z82.3 Family history of stroke

== ENCOUNTER → 2016-09-05 | Outpatient (CLI) | payer OTHER ==
[~2016-09-05] MED LIST: AMOX875T PO; CEPH500C2 PO; FURO-85 PO; GLC/500 PO; KFL500 PO; LCTX PO; LEVO112T2 PO; SULF-183 PO; VLTG EXT
[2016-09-05 15:51] LABS: BASO % 0.7 %; BASO ABS # 0.06 K/uL (0-0.2); COMPLETE YES; EOS % 2.2 %; HEMATOCRIT 35.6 % (37-47); LYMPH % 11.9 %; LYMPH ABS # 1.08 K/uL (1.2-3.4); MEAN CELL VOLUME 88.6 fL (80-100); MEAN CORPUSCULAR HEMOGLOBIN 29.4 pg (25-34); MEAN CORPUSCULAR HGB CONC 33.1 g/dl (32-36); MEAN PLATELET VOLUME 9.9 fL (7.4-10.4); MONO % 7.1 %; NEUT % 76.1 %; PLATELET COUNT 401 K/uL (130-400); RED BLOOD COUNT 4.02 M/uL (4.2-5.4); WHITE BLOOD COUNT 9.07 K/uL (4.8-10.8)
[2016-09-05 16:15] LABS: BLOOD UREA NITROGEN 12 mg/dl (7-18); BUN/CREATININE RATIO 12.1 (10-20); CALCIUM 8.6 mg/dl (8.5-10.1); CARBON DIOXIDE 30 mmol/L (21-32); CHLORIDE 101 mmol/L (98-107); CREATININE 0.98 mg/dl (0.60-1.20); GLUCOSE 85 mg/dl (70-99); POTASSIUM 4.3 mmol/L (3.5-5.1); SODIUM 139 mmol/L (136-145)
[2016-09-05 16:24] LABS: ALB/GLOB RATIO 0.4 (0.9-2); ALKALINE PHOSPHATASE 90 U/L (45-117); ALT/SGPT 45 U/L (12-78); AST/SGOT 52 U/L (15-37); C-REACTIVE PROTEIN 2.44 mg/dl (0-0.29)
== END | disposition home or self-care (01) ==
LOC: C.LAB1850 14:43
PROVIDERS: ATTEND Internal Medicine Infectious Disease
DX: A49.1 Streptococcal infection, unspecified site (principal)

== ENCOUNTER → 2016-09-12 | Outpatient (CLI) | payer OTHER ==
[2016-09-12 16:40] LABS: BASO ABS # 0.18 K/uL (0-0.2); COMPLETE YES; EOS % 1.3 %; HEMATOCRIT 38.2 % (37-47); IG% 0.3 %; LYMPH % 19.9 %; LYMPH ABS # 1.18 K/uL (1.2-3.4); MEAN CELL VOLUME 91.2 fL (80-100); MEAN CORPUSCULAR HEMOGLOBIN 30.1 pg (25-34); MEAN PLATELET VOLUME 9.8 fL (7.4-10.4); MONO % 4.5 %; PLATELET COUNT 354 K/uL (130-400); RED BLOOD COUNT 4.19 M/uL (4.2-5.4); WHITE BLOOD COUNT 5.94 K/uL (4.8-10.8)
[2016-09-12 17:00] LABS: ALT/SGPT 52 U/L (12-78); BLOOD UREA NITROGEN 18 mg/dl (7-18); BUN/CREATININE RATIO 14.7 (10-20); C-REACTIVE PROTEIN 1.01 mg/dl (0-0.29); CALCIUM 8.6 mg/dl (8.5-10.1); CARBON DIOXIDE 28 mmol/L (21-32); CHLORIDE 100 mmol/L (98-107); GLUCOSE 56 mg/dl (70-99); POTASSIUM 3.8 mmol/L (3.5-5.1); SODIUM 135 mmol/L (136-145)
[2016-09-12 17:03] LABS: ALB/GLOB RATIO 0.5 (0.9-2); ALKALINE PHOSPHATASE 110 U/L (45-117); AST/SGOT 44 U/L (15-37)
== END | disposition home or self-care (01) ==
LOC: C.LAB1850 15:43
PROVIDERS: ATTEND Internal Medicine Infectious Disease
DX: R21 Rash and other nonspecific skin eruption (principal); A49.1 Streptococcal infection, unspecified site

== ENCOUNTER → 2016-09-29 | Outpatient (CLI) | payer OTHER ==
[2016-09-29 15:45] LABS: BASO % 1.9 %; COMPLETE YES; EOS % 2.4 %; HEMATOCRIT 39.8 % (37-47); IG% 0.4 %; LYMPH % 19.8 %; LYMPH ABS # 1.05 K/uL (1.2-3.4); MEAN CELL VOLUME 92.3 fL (80-100); MEAN CORPUSCULAR HEMOGLOBIN 30.2 pg (25-34); MEAN CORPUSCULAR HGB CONC 32.7 g/dl (32-36); MEAN PLATELET VOLUME 9.4 fL (7.4-10.4); NEUT % 69.5 %; PLATELET COUNT 290 K/uL (130-400); RED BLOOD COUNT 4.31 M/uL (4.2-5.4); WHITE BLOOD COUNT 5.31 K/uL (4.8-10.8)
== END | disposition home or self-care (01) ==
LOC: C.LAB1850 14:09
PROVIDERS: ATTEND Internal Medicine Infectious Disease
DX: A49.1 Streptococcal infection, unspecified site (principal)

== ENCOUNTER 2017-03-01 15:30 | Emergency (ER) | payer OTHER ==
[~2017-03-01] VITALS: Ht 132.1 cm; Wt 88.5 kg
[~2017-03-01 15:30] MED LIST changes: -AMOX875T PO; -CEPH500C2 PO; -FURO-85 PO; -LCTX PO; -VLTG EXT
[2017-03-01 16:16] VITALS: TEMP 36.8; Ht 132.1 cm; Wt 88.5 kg
[2017-03-01 17:34] LABS: BASO ABS # 0.09 K/uL (0-0.2); COMPLETE YES; EOS % 1.3 %; HEMATOCRIT 42.7 % (37-47); IG% 0.3 %; LYMPH % 12.3 %; LYMPH ABS # 1.07 K/uL (1.2-3.4); MEAN CELL VOLUME 93.2 fL (80-100); MEAN CORPUSCULAR HEMOGLOBIN 32.3 pg (25-34); MEAN CORPUSCULAR HGB CONC 34.7 g/dl (32-36); MEAN PLATELET VOLUME 9.6 fL (7.4-10.4); MONO % 6.5 %; NEUT % 78.6 %; PLATELET COUNT 242 K/uL (130-400); RED BLOOD COUNT 4.58 M/uL (4.2-5.4); WHITE BLOOD COUNT 8.67 K/uL (4.8-10.8)
[2017-03-01 17:55] LABS: ALT/SGPT 26 U/L (12-78); AST/SGOT 22 U/L (15-37); BLOOD UREA NITROGEN 12 mg/dl (7-18); BUN/CREATININE RATIO 14.3 (10-20); CALCIUM 8.1 mg/dl (8.5-10.1); CARBON DIOXIDE 26 mmol/L (21-32); CHLORIDE 111 mmol/L (98-107); CREATININE 0.83 mg/dl (0.60-1.20); GLUCOSE 84 mg/dl (70-99); POTASSIUM 3.7 mmol/L (3.5-5.1); SODIUM 141 mmol/L (136-145)
[2017-03-01 17:59] LABS: ALB/GLOB RATIO 0.7 (0.9-2); ALKALINE PHOSPHATASE 92 U/L (45-117)
[2017-03-01 18:15] LABS: LYME DISEASE AB IGG NEG (NEG); LYME DISEASE AB IGM NEG (NEG)
--- NOTE | 2017-03-01 18:29 | EMERGENCY ROOM VISIT NOTE ---
History First contact with patient: 16:22 Chief Complaint: LEG PAIN,LEG INJURY Stated Complaint: RIGHT LEG SWOLLEN History of Present Illness The patient is a 46 year old female who presents to the Emergency Room with complaints from her brother of a rash and swelling of her bilateral legs. The patient's brother is her primary caregiver, as she does have an [facility] history. The patient's brother states yesterday, the patient had been scratching at her right lower farias on occasion. He states his noticed that she had some swelling of both her lower legs, as well as swelling above the knee bilaterally. She also states there is some swelling the patient's neck and states "she normally has a chin." The patient cut sent home from work today due to the rash and swelling in her legs. The patient denies any pain or difficulty with ambulation. She denies any new soaps, detergents, lotions, creams, or contacts. The patient has not recently been ill. 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 She believes that there was only water and rags in the bucket used to clean, but there may have been soap as well. The patient had a recent inpatient stay for sepsis, when she did have a fever, but no other complaints. The patient denies any complaints at this time, states she is feeling fine. Patient states she is having no difficulty with ambulation. He does not have a history of blood clots. The patient's brother did state that the patient got a pneumonia vaccine and a PPD shot yesterday. Review of Systems A complete 10 point review of systems was reviewed with the patient with pertinent positives and negatives as per history of present illness. All else were negative. Past Medical/Surgical History Medical Problems: (1) Down syndrome (2) Hyperinsulinemia (3) Hypothyroidism (4) Mild mental retardation Surgical Problems: (1) H/O atrial septal defect repair (2) History of open heart surgery Family History FH: CVA (cerebrovascular accident) FATHER Social History Smoking Status: Never Smoker Housing Status: lives with family Current/Historical Medications Scheduled Amoxicillin & Pot Clavulanate (Augmentin 875-125 mg), 1 TAB PO BID Levothyroxine Sodium (Synthroid), 112 MCG PO QAM Physical Exam Vital Signs Date Time Temp Pulse Resp B/P (MAP) Pulse Ox O2 Delivery O2 Flow Rate FiO2 03/01/17 20:50 72 20 143/78 96 Room Air 03/01/17 18:50 68 18 141/90 99 Room Air 03/01/17 16:16 36.8 62 20 126/74 98 Room Air Physical Exam VITALS: Vitals are noted on the nurse's note and reviewed by myself. Vital signs stable. GENERAL: This is a 46-year-old female, in no acute distress, nondiaphoretic, well-developed well-nourished. SKIN: The skin was without rashes or bruising. There is pitting edema with very mild erythema on bilateral lower extremities, worse on the right (2+) than the left (1+). There is no tenting of the skin. Capillary reflex less than 2 seconds. HEAD: Normocephalic atraumatic. EARS: External auditory canals clear, tympanic membranes pearly waters without erythema or effusion bilaterally. EYES: Pupils equal round and reactive to light and accommodation. Conjunctivae without injection, sclerae without icterus. Extraocular movements intact. NOSE: Patent, turbinates without inflammation or discharge. No sinus tenderness. MOUTH: Mucous membranes moist. Tonsils are not enlarged. Pharynx without erythema or exudate. Uvula midline. Airway patent. Tongue does not deviate. NECK: Supple without nuchal rigidity. No lymphadenopathy. No thyromegaly. Cervical spine is nontender. No JVD. The patient's [id number] does state the patient's neck appears more swollen than normal. HEART: Regular rate and rhythm without murmurs gallops or rubs. LUNGS: Clear to auscultation bilaterally without wheezes, rales or rhonchi. No dullness to percussion. No retractions or accessory muscle use. ABDOMEN: Positive bowel sounds x 4. Normal tympanic percussion. Soft, nontender, without masses or organomegaly. Taylor sign negative. No guarding or rebound tenderness. MUSCULOSKELETAL: No muscle atrophy noted. Full range of motion without joint tenderness in all extremities. No tenderness to palpation. Negative Yuan's Sign bilaterally. Edema as noted previously. Pt's sister also reports a "shelf" just above the patient's knees of swelling in her upper legs. Normal gait. Strength 5/5 throughout. NEURO: Patient was alert and oriented to person place and time. Normal sensation to light and sharp touch. Deep tendon reflexes 2+ throughout. No focal neurological deficits. Medical Decision & Procedures ER Provider Diagnostic Interpretation: CBC was without leukocytosis, anemia, thrombocytopenia. CMP was significant only for slightly low calcium of 8.1, slightly low albumin at 3.1, and slightly elevated globulin at 4.7. LFTs and renal function normal. Negative lactic acid of 0.8. Negative Troponin <0.015. Negative BNP of 51. Lyme disease testing negative. CXR: FINDINGS: Interval placement of median sternotomy wires. Cardiomediastinal silhouette normal. Lungs and pleural spaces clear.Osseous structures normal. Upper abdomen normal. IMPRESSION: 1. No acute cardiopulmonary disease. U/S Bilateral LE: FINDINGS: Right: Common femoral vein: Linear echogenic focus within the right common femoral vein, which is somewhat eccentric. Common femoral vein fully compressible. Femoral vein: Patent. Greater saphenous vein: Patent. Popliteal vein: Patent. Calf veins: Deep veins of the calf patent. Nonocclusive filling defect consistent with thrombus within a dilated superficial calf vein. Left: Common femoral vein: Patent. Femoral vein: Patent. Greater saphenous vein: Patent. Popliteal vein: Patent. Calf veins: Deep veins of the calf patent. Nonocclusive filling defect consistent with thrombus within a dilated superficial calf vein. Other: Subcutaneous edema in the superficial soft tissues of the right lower leg. Less pronounced subcutaneous edema in the left lower leg. IMPRESSION: 1. No convincing evidence of acute deep venous thrombosis. 2. Possible chronic nonocclusive thrombus in the right common femoral vein. 3. Bilateral nonocclusive thrombi in superficial varicosities of the calves. Laboratory Results 03/01/17 17:06 Red Blood Count 4.58, Mean Corpuscular Volume 93.2, Mean Corpuscular Hemoglobin 32.3, Mean Corpuscular Hemoglobin Concent 34.7, Mean Platelet Volume 9.6, Neutrophils (%) (Auto) 78.6, Lymphocytes (%) (Auto) 12.3, Monocytes (%) (Auto) 6.5, Eosinophils (%) (Auto) 1.3, Basophils (%) (Auto) 1.0, Neutrophils # (Auto) 6.81, Lymphocytes # (Auto) 1.07, Monocytes # (Auto) 0.56, Eosinophils # (Auto) 0.11, Basophils # (Auto) 0.09 03/01/17 17:06 Test 03/01/17 17:06 White Blood Count 8.67 K/uL (4.8-10.8) Red Blood Count 4.58 M/uL (4.2-5.4) Hemoglobin 14.8 g/dL (12.0-16.0) Hematocrit 42.7 % (37-47) Mean Corpuscular Volume 93.2 fL (80-100) Mean Corpuscular Hemoglobin 32.3 pg (25-34) Mean Corpuscular Hemoglobin Concent 34.7 g/dl (32-36) Platelet Count 242 K/uL (130-400) Mean Platelet Volume 9.6 fL (7.4-10.4) Neutrophils (%) (Auto) 78.6 % Lymphocytes (%) (Auto) 12.3 % Monocytes (%) (Auto) 6.5 % Eosinophils (%) (Auto) 1.3 % Basophils (%) (Auto) 1.0 % Neutrophils # (Auto) 6.81 K/uL (1.4-6.5) Lymphocytes # (Auto) 1.07 K/uL (1.2-3.4) Monocytes # (Auto) 0.56 K/uL (0.11-0.59) Eosinophils # (Auto) 0.11 K/uL (0-0.5) Basophils # (Auto) 0.09 K/uL (0-0.2) RDW Standard Deviation 55.5 fL (36.4-46.3) RDW Coefficient of Variation 16.3 % (11.5-14.5) Immature Granulocyte % (Auto) 0.3 % Immature Granulocyte # (Auto) 0.03 K/uL (0.00-0.02) Anion Gap 4.0 mmol/L (3-11) Est Creatinine Clear Calc Drug Dose 70.6 ml/min Estimated GFR () 99.4 Estimated GFR (Non- 85.8 BUN/Creatinine Ratio 14.3 (10-20) Lactic Acid Level 0.8 mmol/L (0.4-2.0) Calcium Level 8.1 mg/dl (8.5-10.1) Total Bilirubin 0.4 mg/dl (0.2-1) Aspartate Amino Transf (AST/SGOT) 22 U/L (15-37) Alanine Aminotransferase (ALT/SGPT) 26 U/L (12-78) Alkaline Phosphatase 92 U/L (45-117) Troponin I < 0.015 ng/ml (0-0.045) Pro-B-Type Natriuretic Peptide 51 pg/ml (0-450) Total Protein 7.8 gm/dl (6.4-8.2) Albumin 3.1 gm/dl (3.4-5.0) Globulin 4.7 gm/dl (2.5-4.0) Albumin/Globulin Ratio 0.7 (0.9-2) Lyme Disease IgG Antibody NEG (NEG) Lyme Disease IgM Antibody NEG (NEG) Medications Administered Medications (Trade) Dose Ordered Sig/Artur Route Start Time Stop Time Status Last Admin Dose Admin Amoxicillin/ Clavulanate Potassium (Augmentin Tab) 875 mg BID PO 03/01/17 21:00 03/01/17 21:32 DC 03/01/17 21:06 875 MG Medical Decision The patient was seen and evaluated as above. Labs, chest x-ray, ultrasound were ordered. These tests were reviewed. I discussed the case with Dr. Gee, who did see and independently evaluated the patient. The differential diagnosis includes: Cellulitis, heart failure, DVT, sepsis, vaccination reaction, Lyme disease, cardiac etiology, malignancy, and others I do feel that the patient's signs and symptoms likely indicate a very early cellulitic infection. The patient will be started on outpatient antibiotics. Due to her history of sepsis with very few symptoms, I did encourage her brother and [id number] to closely monitor the patient for worsening condition. The patient's brother is in agreement with the assessment and plan. Medication Reconcilliation Current Medication List: was personally reviewed by me Blood Pressure Screening Patient's blood pressure: Normal blood pressure Impression Primary Impression: Cellulitis Departure Information Dispostion Home / Self-Care Condition GOOD Prescriptions Amoxicillin & Pot Clavulanate (Augmentin 875-125 mg) 1 Tab Tab 1 TAB PO BID for 10 Days, #20 TAB Prov: Sara Hilliard PA-C 03/01/17 Referrals Rodrigue Bhandari PA-C (PCP) Patient Instructions ED Infec Skin Cellulitis, [facility] Additional Instructions You were prescribed Augmentin to be taken twice daily. This is an antibiotic. All antibiotics have the potential to cause diarrhea. Stop this medication and contact a medical provider if you were to develop any significant adverse side effects including: wheezing, shortness of breath, passing out, vomiting, or a diffuse rash. Always take antibiotics as directed and COMPLETE the ENTIRE course regardless of the improvement of your symptoms. Please return to the emergency department for increasing redness, swelling, spreading of the redness, pus, fever, chills, nausea, vomiting, or other systemic symptoms. Please follow up in 1-2 days with your PCP for further evaluation and to ensure that the infection is improving. Problem Qualifiers Primary Impression: Cellulitis Site of cellulitis: extremity Site of cellulitis of extremity: lower extremity Laterality: right Qualified Codes: L03.115 - Cellulitis of right lower limb
--- NOTE | 2017-03-01 19:42 | DIAGNOSTIC IMAGING REPORT ---
VENOUS DOPPLER LWR EXT BILA CLINICAL HISTORY: 46 years-old Female presenting with bilateral LE edema. TECHNIQUE: Real-time grayscale and color and spectral Doppler ultrasound imaging of the veins of the bilateral lower extremities was performed. Compression and augmentation were also utilized. COMPARISON: None. FINDINGS: Right: Common femoral vein: Linear echogenic focus within the right common femoral vein, which is somewhat eccentric. Common femoral vein fully compressible. Femoral vein: Patent. Greater saphenous vein: Patent. Popliteal vein: Patent. Calf veins: Deep veins of the calf patent. Nonocclusive filling defect consistent with thrombus within a dilated superficial calf vein. Left: Common femoral vein: Patent. Femoral vein: Patent. Greater saphenous vein: Patent. Popliteal vein: Patent. Calf veins: Deep veins of the calf patent. Nonocclusive filling defect consistent with thrombus within a dilated superficial calf vein. Other: Subcutaneous edema in the superficial soft tissues of the right lower leg. Less pronounced subcutaneous edema in the left lower leg. IMPRESSION: 1. No convincing evidence of acute deep venous thrombosis. 2. Possible chronic nonocclusive thrombus in the right common femoral vein. 3. Bilateral nonocclusive thrombi in superficial varicosities of the calves. Electronically signed by: Praneeth Vance M.D. 03/01/2017 7:40 PM Dictated Date/Time: 03/01/2017 7:37 PM
--- NOTE | 2017-03-01 20:31 | DIAGNOSTIC IMAGING REPORT ---
CHEST 2 VIEWS ROUTINE CLINICAL HISTORY: 46 years-old Female presenting with edema. TECHNIQUE: PA and lateral views of the chest were obtained. COMPARISON: 08/29/2016. FINDINGS: Interval placement of median sternotomy wires. Cardiomediastinal silhouette normal. Lungs and pleural spaces clear.Osseous structures normal. Upper abdomen normal. IMPRESSION: 1. No acute cardiopulmonary disease. Electronically signed by: Praneeth Vance M.D. 03/01/2017 8:29 PM Dictated Date/Time: 03/01/2017 8:28 PM
[2017-03-01 20:50] VITALS: BP 143/78; PULSE 72; O2SAT 96
[2017-03-01] MEDS ORDERED: AMOX875T PO (20:55)
--- NOTE | 2017-03-01 20:55 | EMERGENCY ROOM VISIT NOTE ---
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 I was involved in the patient's care and did evaluate the patient myself. I was involved in the care throughout the ER stay. The patient's laboratory workup is unrevealing. No acute DVT by ultrasound. She appears to have an early cellulitis in the right lower extremity. Outpatient antibiotics are indicated.
[2017-03-01] MEDS ORDERED: AMOXICILLIN/CLAVULANATE TAB 875 MG TAB PO SCH (21:00)
[2017-03-01] MEDS ORDERED: AMOXICIL/CLAVU 875MG HOME PACK PO ONE (21:15)
[2017-03-09] MEDS ORDERED: CEPH500C2 PO (13:42)
[2017-03-09] MEDS ORDERED: LCTX PO (13:42)
[2017-03-09] MEDS ORDERED: FURO-85 PO (13:42)
[2017-03-09] MEDS ORDERED: VLTG EXT (13:46)
== END 2017-03-01 21:15 | disposition home or self-care (01) ==
LOC: C.EDB 15:31 → C.EDD 21:15
DX: L03.119 Cellulitis of unspecified part of limb (principal); E03.9 Hypothyroidism, unspecified; Q90.9 Down syndrome, unspecified; F70 Mild intellectual disabilities; Z98.890 Other specified postprocedural states; Z79.899 Other long term (current) drug therapy; Z82.49 Family history of ischemic heart disease and other diseases of the circulatory system

== ENCOUNTER 2017-03-06 08:36 | Inpatient (IN) | payer OTHER ==
[~2017-03-06] VITALS: Ht 137.2 cm; Wt 88.1 kg
[~2017-03-06 08:36] MED LIST changes: +AMOX875T PO; -GLC/500 PO; -KFL500 PO; -SULF-183 PO
[2017-03-06] MEDS ORDERED: SODIUM CHLORIDE 0.9% 1000ML 1,000 ML IV STA (09:31)
[2017-03-06 10:14] LABS: BASO ABS # 0.08 K/uL (0-0.2); COMPLETE YES; EOS % 1.7 %; IG% 0.4 %; LYMPH % 10.3 %; LYMPH ABS # 0.86 K/uL (1.2-3.4); MEAN CELL VOLUME 95.1 fL (80-100); MEAN CORPUSCULAR HEMOGLOBIN 32.3 pg (25-34); MEAN CORPUSCULAR HGB CONC 33.9 g/dl (32-36); MEAN PLATELET VOLUME 10.1 fL (7.4-10.4); MONO % 4.3 %; NEUT % 82.3 %; PLATELET COUNT 213 K/uL (130-400); RED BLOOD COUNT 4.31 M/uL (4.2-5.4); WHITE BLOOD COUNT 8.32 K/uL (4.8-10.8)
[2017-03-06 10:33] LABS: BUN/CREATININE RATIO 14.7 (10-20); CREATININE 0.78 mg/dl (0.60-1.20); POTASSIUM 3.5 mmol/L (3.5-5.1)
[2017-03-06 10:36] LABS: ALB/GLOB RATIO 0.6 (0.9-2)
[2017-03-06 10:36] LABS: URINE APPEARANCE CLEAR (CLEAR); URINE BILIRUBIN NEG (NEG); URINE COLOR YELLOW; URINE EPITHELIAL CELL AUTO >30 /lpf (0-5); URINE NITRITE NEG (NEG); URINE SPECIFIC GRAVITY 1.025 (1.000-1.030); UROBILINOGEN NEG (NEG); ZZUR CULT IF INDIC CLEAN CATCH NO
[2017-03-06 10:46] LABS: MANUAL MICROSCOPIC REQUIRED? NO; REVIEW REQ? NO
[2017-03-06] MEDS ORDERED: PIPERACILLIN/TAZOBACTAM 3.375 GM/100ML D5W IV STA (10:49)
[2017-03-06] MEDS ORDERED: PIPERACILL/TAZOBAC IV 3.375 GM in DEXTROSE 5% 100ML IV ONE (11:00)
--- NOTE | 2017-03-06 11:12 | EMERGENCY ROOM VISIT NOTE ---
ED Visit Note First contact with patient: 09:23 46-year-old female with cellulitis of her right leg was fully evaluated by Ezequiel Garcia PA-C. Please see his note. I also independently evaluated the patient. The patient will require further evaluation in the hospital with IV antibiotics.
[2017-03-06 11:41] VITALS: Ht 137.2 cm; Wt 88.1 kg
[2017-03-06] MEDS ORDERED: POTASSIUM CHLORIDE 10 MEQ TABCR PO STA (12:42)
--- NOTE | 2017-03-06 12:45 | History and Physical ---
History & Physical Date & Time of Service: Mar 06, 2017 at 12:32 Chief Complaint: Cellulitis; 5 Days Primary Care Physician: Rodrigue Bhandari PA-C History of Present Illness Source: patient, caregiver (Rani An ([phone])) This is a 46 year old Female with history of Down's Syndrome, with past surgical history of cardiac surgery, with cellulitis of upper extremities treated in Aug 2016, with previous emergency evaluation for right lower extremity cellulitis and started on Amoxicillin-Clavulanate PO BID for 5 days since 03/01/2017 when she was last seen in the ED in [facility]. As per accompanying visitor, patient's sister in law and reported legal guardian Maria Del Carmen An ([phone]) that patient developed erythema and swelling started on 03/01/2017 and since that time the swelling has been reduced since being on PO antibiotics. She brought patient to the ED today because symptoms persistent. Of note, patient was to have bilateral nonocclusive thrombi in superficial varicosities with possible chronic nonocclusive thrombus in the right common femoral vein and patient was not deemed to have thrombi that required anticoagulation when last seen in the ED on 03/01/2017. Patient denies shortness of breath. Denies pain except when touching the erythematous area of anterior right leg. No reported history of fevers at home. Patient's sister in law comments that patient minimizes complaints even when ill. Sister in law also reporting that patient had blood in urine when she went to the bathroom in the ED. Past Medical/Surgical History Medical Problems: (1) Down syndrome Status: Chronic (2) Hyperinsulinemia Status: Chronic (3) Hypothyroidism Status: Chronic (4) Mild mental retardation Status: Chronic Surgical Problems: (1) H/O atrial septal defect repair Status: Chronic (2) History of open heart surgery Status: Resolved Family History FH: CVA (cerebrovascular accident) FATHER FH: breast cancer MOTHER Social History Smoking Status: Never Smoker Alcohol Use: none Drug Use: none Housing status: lives with family Immunizations History of Influenza Vaccine: Yes Influenza Vaccine Date: Apr 29, 2015 History of Tetanus Vaccine?: Yes Tetanus Immunization Date: Mar 31, 2008 Allergies Coded Allergies: No Known Allergies (Unverified , 03/06/17) Home Medications Scheduled Amoxicillin & Pot Clavulanate (Augmentin 875-125 mg), 1 TAB PO BID Levothyroxine Sodium (Synthroid), 112 MCG PO QAM Review of Systems Constitutional: No fever Eyes: No discharge ENT: No sore throat, No trouble swallowing Respiratory: No cough, No shortness of breath Cardiovascular: No chest pain Abdomen: No pain, No diarrhea Musculoskeletal: + swelling (right lower extremity) Genitourinary - Female: + hematuria, No dysuria Neurologic: No paralysis Psychiatric: No substance abuse Endocrine: No fatigue Hematologic / Lymphatic: No swollen lymph nodes Integumentary: + rash (beneath abdomen pannus) Allergic / Immunologic: No food allergies Physical Exam Vital Signs Date Time Temp Pulse Resp B/P (MAP) Pulse Ox O2 Delivery O2 Flow Rate FiO2 03/06/17 11:41 Room Air 03/06/17 10:48 73 130/70 99 Room Air 03/06/17 08:49 36.8 71 18 131/85 99 Room Air General Appearance: no apparent distress Head: atraumatic Eyes: normal inspection, PERRL, EOMI, sclerae normal ENT: normal ENT inspection, hearing grossly normal, pharynx normal Neck: supple, no adenopathy, thyroid normal, trachea midline Respiratory/Chest: chest non-tender, lungs clear, normal breath sounds, no respiratory distress, no accessory muscle use Cardiovascular: regular rate, rhythm, normal peripheral pulses Abdomen/GI: normal bowel sounds, non tender, soft Back: normal inspection, no muscle spasm Extremities/Musculoskelatal: no calf tenderness, no pedal edema, + inflammation Neurologic/Psych: no motor/sensory deficits, alert, oriented x 3 Diagnostics Laboratory Results Results Past 24 Hours Test 03/06/17 09:45 03/06/17 10:21 03/06/17 12:06 Range/Units White Blood Count 8.32 4.8-10.8 K/uL Red Blood Count 4.31 4.2-5.4 M/uL Hemoglobin 13.9 12.0-16.0 g/dL Hematocrit 41.0 37-47 % Mean Corpuscular Volume 95.1 80-100 fL Mean Corpuscular Hemoglobin 32.3 25-34 pg Mean Corpuscular Hemoglobin Concent 33.9 32-36 g/dl Platelet Count 213 130-400 K/uL Mean Platelet Volume 10.1 7.4-10.4 fL Neutrophils (%) (Auto) 82.3 % Lymphocytes (%) (Auto) 10.3 % Monocytes (%) (Auto) 4.3 % Eosinophils (%) (Auto) 1.7 % Basophils (%) (Auto) 1.0 % Neutrophils # (Auto) 6.85 1.4-6.5 K/uL Lymphocytes # (Auto) 0.86 1.2-3.4 K/uL Monocytes # (Auto) 0.36 0.11-0.59 K/uL Eosinophils # (Auto) 0.14 0-0.5 K/uL Basophils # (Auto) 0.08 0-0.2 K/uL RDW Standard Deviation 54.7 36.4-46.3 fL RDW Coefficient of Variation 15.7 11.5-14.5 % Immature Granulocyte % (Auto) 0.4 % Immature Granulocyte # (Auto) 0.03 0.00-0.02 K/uL Sodium Level 141 136-145 mmol/L Potassium Level 3.5 3.5-5.1 mmol/L Chloride Level 109 98-107 mmol/L Carbon Dioxide Level 28 21-32 mmol/L Anion Gap 4.0 3-11 mmol/L Blood Urea Nitrogen 12 7-18 mg/dl Creatinine 0.78 0.60-1.20 mg/dl Est Creatinine Clear Calc Drug Dose 78.9 ml/min Estimated GFR () 107.2 Estimated GFR (Non- 92.5 BUN/Creatinine Ratio 14.7 10-20 Random Glucose 97 70-99 mg/dl Lactic Acid Level 1.3 0.4-2.0 mmol/L Calcium Level 8.0 8.5-10.1 mg/dl Total Bilirubin 0.6 0.2-1 mg/dl Aspartate Amino Transf (AST/SGOT) 22 15-37 U/L Alanine Aminotransferase (ALT/SGPT) 21 12-78 U/L Alkaline Phosphatase 87 45-117 U/L Total Protein 7.5 6.4-8.2 gm/dl Albumin 2.8 3.4-5.0 gm/dl Globulin 4.7 2.5-4.0 gm/dl Albumin/Globulin Ratio 0.6 0.9-2 Urine Color YELLOW Urine Appearance CLEAR CLEAR Urine pH 7.0 4.5-7.5 Urine Specific [place] 1.025 1.000-1.030 Urine Protein NEG NEG Urine Glucose (UA) NEG NEG Urine Ketones NEG NEG Urine Occult Blood 2+ NEG Urine Nitrite NEG NEG Urine Bilirubin NEG NEG Urine Urobilinogen NEG NEG Urine Leukocyte Esterase SMALL NEG Urine WBC (Auto) 1-5 0-5 /hpf Urine RBC (Auto) >30 0-4 /hpf Urine Hyaline Casts (Auto) 1-5 0-5 /lpf Urine Epithelial Cells (Auto) >30 0-5 /lpf Urine Bacteria (Auto) NEG NEG Microbiology Results 03/06/17 Blood Culture, Received Pending 03/06/17 Blood Culture, Received Pending Diagnostic Radiology Lower Extremity Ultrasound from previous ED visit on 03/01/2017 FINDINGS: Right: Common femoral vein: Linear echogenic focus within the right common femoral vein, which is somewhat eccentric. Common femoral vein fully compressible. Femoral vein: Patent. Greater saphenous vein: Patent. Popliteal vein: Patent. Calf veins: Deep veins of the calf patent. Nonocclusive filling defect consistent with thrombus within a dilated superficial calf vein. Left: Common femoral vein: Patent. Femoral vein: Patent. Greater saphenous vein: Patent. Popliteal vein: Patent. Calf veins: Deep veins of the calf patent. Nonocclusive filling defect consistent with thrombus within a dilated superficial calf vein. Other: Subcutaneous edema in the superficial soft tissues of the right lower leg. Less pronounced subcutaneous edema in the left lower leg. IMPRESSION: 1. No convincing evidence of acute deep venous thrombosis. 2. Possible chronic nonocclusive thrombus in the right common femoral vein. 3. Bilateral nonocclusive thrombi in superficial varicosities of the calves. Electronically signed by: Praneeth Vance M.D. 03/01/2017 7:40 PM Dictated Date/Time: 03/01/2017 7:37 PM No prior EKG available Impression Assessment and Plan This is a 46 year old Female with history of Down's Syndrome, with past surgical history of cardiac surgery, with cellulitis of upper extremities treated in Aug 2016, with previous emergency evaluation for right lower extremity cellulitis and started on Amoxicillin-Clavulanate PO BID for 5 days since 03/01/2017 when she was last seen in the ED in [facility] for erythema and swelling Patient otherwise is comfortable and speaking in full sentences on room air Plan to treat for cellulitis and rule out DVT or thrombophlebitis with ultrasound Cellulitis -previously on Amoxicillin-Clavulanate PO BID for 5 days since 03/01/2017 -blood cultures drawn in the ED on 03/06/2017 -Zosyn 3.375 grams Rule out DVT -bilateral nonocclusive thrombi in superficial varicosities with possible chronic nonocclusive thrombus in the right common femoral vein on 03/01/2017 -ultrasound ordered on 03/06/2017 to repeat study as swelling or RLE has not completely resolved -Lovenox 40 mg subc daily for DVT prophylaxis unless there is need to actively treat for DVT Hematuria -review or urinalysis shows RBC -patient has history of being on Depo-Provera and this may be break through bleed versus other causes of hematuria, no casts in the UA so less likely glomerular source -rule out -trend CBC, maintain type and screen Rash under abdomen pannus -miconazole powder BID History of Hypothyroidism -continue home Levothyroxine 112 mcg daily Electrolytes -serum potassium 3.5, check magnesium level, replete potassium Guardianship/Medical Decision making -asked patient's sister in law and reported legal guardian Maria Del Carmen An ) to bring in her paperwork that supports her status in helping with patient's medical decision making Advanced Directives Existing Advance Directive: No Existing Living Will: No Existing Power of General Studies Program Chair: No Existing Health Care Proxy: No Resuscitation Status FULL RESUSCITATION VTE Prophylaxis VTE Risk Assessment Done? Y/N: Yes Risk Level: Moderate
[2017-03-06 13:00] VITALS: BP 119/73; PULSE 73; TEMP 36.4; O2SAT 99
[2017-03-06] MEDS ORDERED: PIPERACILL/TAZOBAC CONSULT ACTIVE PRN (13:45)
[2017-03-06 14:24] LABS: PROTHROMBIN TIME (PATIENT) 10.4 SECONDS (9.0-12.0)
[2017-03-06 14:49] VITALS: BP 110/66; PULSE 64; TEMP 36.8; O2SAT 99
--- NOTE | 2017-03-06 14:59 | DIAGNOSTIC IMAGING REPORT ---
VENOUS DOPPLER LWR EXT BILA CLINICAL HISTORY: 46 years-old Female presenting with rule out deep vein thrombosis. TECHNIQUE: Real-time grayscale and color and spectral Doppler ultrasound imaging of the veins of the bilateral lower extremities was performed. Compression and augmentation were also utilized. COMPARISON: 03/01/2017. FINDINGS: Right: Common femoral vein: Previously noted linear hyperechogenic focus within the right common femoral vein along the vessel wall is less pronounced on the current study. Common femoral vein fully compressible. Femoral vein: Patent. Greater saphenous vein: Patent. Popliteal vein: Patent. Calf veins: Limited visualization of the deep veins of the calf. Nearly occlusive defect consistent with thrombus within the dilated superficial calf vein. Left: Common femoral vein: Patent. Femoral vein: Patent. Greater saphenous vein: Patent. Popliteal vein: Patent. Calf veins: Limited visualization. Other: None. IMPRESSION: 1. No evidence of deep venous thrombosis. 2. Superficial vein thrombosis in the right calf varicosities. Electronically signed by: Praneeth Vance M.D. 03/06/2017 2:58 PM Dictated Date/Time: 03/06/2017 2:54 PM
[2017-03-06] MEDS: ENOXAPARIN 40 MG/0.4 ML SYR SQ SCH (15:51)
[2017-03-06] MEDS: MICONAZOLE NITRATE POWDER 43 GM EXT SCH ×2 (15:52→20:33)
[2017-03-06] MEDS: PIPERACILL/TAZOBAC IV 3.375 GM in DEXTROSE 5% 100ML 100 ML IV SCH (18:08)
--- NOTE | 2017-03-06 19:13 | EMERGENCY ROOM VISIT NOTE ---
History First contact with patient: 09:23 Chief Complaint: INFECTION Stated Complaint: CELLULITIS Nursing Triage Summary: Pt presents with [id number]/guardian who reports here in cellulitis in Aug for several days for Staph/Strep. Seen here last week for cellulitis on right leg and started on Augmentin. Rash is now blistering. Denies fever/chills. Denies drainage at present. History of Present Illness The patient is a 46 year old female who presents to the Emergency Room via private vehicle with complaints of "cellulitis". The patient states that she has a history of infection, and was seen here 5 days ago for an infection of the right leg. She was placed upon Augmentin and was doing well, up until the past few days it the redness has returned, and is worsened. She denies any associated fevers or chills. She denies any allergies. She notes she had an ultrasound performed which she was here which was negative. Review of Systems A complete 10-point Review of Systems was discussed with the patient, with pertinent positives and negatives listed in the History of Present Illness. All remaining Review of Systems questions can be considered negative unless otherwise specified. Past Medical/Surgical History Medical Problems: (1) Down syndrome (2) Hyperinsulinemia (3) Hypothyroidism (4) Mild mental retardation Surgical Problems: (1) H/O atrial septal defect repair (2) History of open heart surgery Family History FH: CVA (cerebrovascular accident) FATHER FH: breast cancer MOTHER Social History Smoking Status: Never Smoker Drug Use: none Housing Status: lives with family Current/Historical Medications Scheduled Amoxicillin & Pot Clavulanate (Augmentin 875-125 mg), 1 TAB PO BID Levothyroxine Sodium (Synthroid), 112 MCG PO QAM Physical Exam Vital Signs Date Time Temp Pulse Resp B/P (MAP) Pulse Ox O2 Delivery O2 Flow Rate FiO2 03/06/17 11:41 Room Air 03/06/17 10:48 73 130/70 99 Room Air 03/06/17 08:49 36.8 71 18 131/85 99 Room Air Pain Rating (0-10): 0 Physical Exam VITAL SIGNS - Vital signs and nursing notes were reviewed. Stable. GENERAL -46-year-old female appearing her stated age who is in no acute distress. Communicates well with provider and answers questions appropriately. SKIN - there is bilateral brown rash noted to the anterior farias, with acute erythema that is slightly raised in the medial aspect of the mid farias. HEAD - NC/AT. LUNGS - Chest wall symmetric without accessory muscle use, intercostals retractions, or central cyanosis. Normal vesicular breath sounds CTA B/L. No wheezes, rales, or rhonchi appreciated. CARDIAC - RRR with S1/S2. No murmur, rubs, or gallops appreciated. EXTREMITIES - No clubbing or peripheral cyanosis. No pretibial edema present. She is neurovascularly intact in the right lower extremity. +5/5 strength noted in UE/LE bilaterally. NEUROLOGIC - no neurologic deficits appreciated upon exam. Medical Decision & Procedures Laboratory Results 03/06/17 09:45 Red Blood Count 4.31, Mean Corpuscular Volume 95.1, Mean Corpuscular Hemoglobin 32.3, Mean Corpuscular Hemoglobin Concent 33.9, Mean Platelet Volume 10.1, Neutrophils (%) (Auto) 82.3, Lymphocytes (%) (Auto) 10.3, Monocytes (%) (Auto) 4.3, Eosinophils (%) (Auto) 1.7, Basophils (%) (Auto) 1.0, Neutrophils # (Auto) 6.85, Lymphocytes # (Auto) 0.86, Monocytes # (Auto) 0.36, Eosinophils # (Auto) 0.14, Basophils # (Auto) 0.08 03/06/17 09:45 Test 03/06/17 09:45 03/06/17 10:21 White Blood Count 8.32 K/uL (4.8-10.8) Red Blood Count 4.31 M/uL (4.2-5.4) Hemoglobin 13.9 g/dL (12.0-16.0) Hematocrit 41.0 % (37-47) Mean Corpuscular Volume 95.1 fL (80-100) Mean Corpuscular Hemoglobin 32.3 pg (25-34) Mean Corpuscular Hemoglobin Concent 33.9 g/dl (32-36) Platelet Count 213 K/uL (130-400) Mean Platelet Volume 10.1 fL (7.4-10.4) Neutrophils (%) (Auto) 82.3 % Lymphocytes (%) (Auto) 10.3 % Monocytes (%) (Auto) 4.3 % Eosinophils (%) (Auto) 1.7 % Basophils (%) (Auto) 1.0 % Neutrophils # (Auto) 6.85 K/uL (1.4-6.5) Lymphocytes # (Auto) 0.86 K/uL (1.2-3.4) Monocytes # (Auto) 0.36 K/uL (0.11-0.59) Eosinophils # (Auto) 0.14 K/uL (0-0.5) Basophils # (Auto) 0.08 K/uL (0-0.2) RDW Standard Deviation 54.7 fL (36.4-46.3) RDW Coefficient of Variation 15.7 % (11.5-14.5) Immature Granulocyte % (Auto) 0.4 % Immature Granulocyte # (Auto) 0.03 K/uL (0.00-0.02) Anion Gap 4.0 mmol/L (3-11) Est Creatinine Clear Calc Drug Dose 78.9 ml/min Estimated GFR () 107.2 Estimated GFR (Non- 92.5 BUN/Creatinine Ratio 14.7 (10-20) Lactic Acid Level 1.3 mmol/L (0.4-2.0) Calcium Level 8.0 mg/dl (8.5-10.1) Magnesium Level 2.6 mg/dl (1.8-2.4) Total Bilirubin 0.6 mg/dl (0.2-1) Aspartate Amino Transf (AST/SGOT) 22 U/L (15-37) Alanine Aminotransferase (ALT/SGPT) 21 U/L (12-78) Alkaline Phosphatase 87 U/L (45-117) Total Protein 7.5 gm/dl (6.4-8.2) Albumin 2.8 gm/dl (3.4-5.0) Globulin 4.7 gm/dl (2.5-4.0) Albumin/Globulin Ratio 0.6 (0.9-2) Urine Color YELLOW Urine Appearance CLEAR (CLEAR) Urine pH 7.0 (4.5-7.5) Urine Specific [place] 1.025 (1.000-1.030) Urine Protein NEG (NEG) Urine Glucose (UA) NEG (NEG) Urine Ketones NEG (NEG) Urine Occult Blood 2+ (NEG) Urine Nitrite NEG (NEG) Urine Bilirubin NEG (NEG) Urine Urobilinogen NEG (NEG) Urine Leukocyte Esterase SMALL (NEG) Urine WBC (Auto) 1-5 /hpf (0-5) Urine RBC (Auto) >30 /hpf (0-4) Urine Hyaline Casts (Auto) 1-5 /lpf (0-5) Urine Epithelial Cells (Auto) >30 /lpf (0-5) Urine Bacteria (Auto) NEG (NEG) Medications Administered Medications (Trade) Dose Ordered Sig/Artur Route Start Time Stop Time Status Last Admin Dose Admin Sodium Chloride 1,000 ml @ 999 mls/hr Q1H1M STAT IV 03/06/17 09:31 03/06/17 10:31 DC 03/06/17 09:52 999 MLS/HR Piperacillin Sod/ Tazobactam Sod 3.375 gm/Dextrose 115 ml @ 230 mls/hr NOW ONCE IV 03/06/17 11:00 03/06/17 11:29 DC 03/06/17 11:17 230 MLS/HR Medical Decision Patient was seen and evaluated as above. After obtaining a thorough history and physical examination IV access was initiated, and the above workup was performed. Patient was asked to us today with erythema of the right anterior farias which is concerning for cellulitis and has been on outpatient antibiotics 5 days. Extensively her past visits were reviewed. She was admitted for sepsis in the past. She at this time appears to be at higher risk for infection. She'll be given 3.375 g of Zosyn. I do believe that this is appropriate, and is tolerated this well on the past. This is to cover for any sialitis. Cultures were drawn. Ultrasound was performed a few days ago. Unlikely but a new DVT as developed. I believe that further evaluation and management in the inpatient setting is warranted secondary to failure of outpatient antibiotics. Please refer to further documentation regarding her stay. Case was discussed with the attending physician, who also personally evaluated the patient. In evaluation treatment this patient following differential diagnoses were entertained: Cellulitis, sepsis, among others. Impression Primary Impression: Cellulitis Departure Information Dispostion Admitted as an inpatient Condition FAIR Referrals Rodrigue Bhandari PA-C (PCP) Forms WORK / SCHOOL INSTRUCTIONS, HOME CARE DOCUMENTATION FORM, IMPORTANT VISIT INFORMATION Patient Instructions My [facility]
[2017-03-06 23:32] VITALS: BP 119/75; PULSE 90; TEMP 36.8; O2SAT 95
[2017-03-07] MEDS: PIPERACILL/TAZOBAC IV 3.375 GM in DEXTROSE 5% 100ML 100 ML IV SCH ×3 (02:05→17:57)
[2017-03-07 02:30] LABS: PREG INTERNAL NEGATIVE QC NEG CLEAR BACKGROUND; PREG INTERNAL POSITIVE QC POS CONTROL LINE
[2017-03-07] MEDS: LEVOTHYROXINE 112 MCG TAB PO SCH (06:07)
[2017-03-07 06:21] LABS: MEAN CELL VOLUME 95.6 fL (80-100); MEAN CORPUSCULAR HEMOGLOBIN 30.9 pg (25-34); MEAN CORPUSCULAR HGB CONC 32.3 g/dl (32-36); PLATELET COUNT 212 K/uL (130-400); WHITE BLOOD COUNT 8.41 K/uL (4.8-10.8)
[2017-03-07 06:58] LABS: BUN/CREATININE RATIO 13.1 (10-20); CALCIUM 8.1 mg/dl (8.5-10.1); CREATININE 0.74 mg/dl (0.60-1.20); POTASSIUM 3.8 mmol/L (3.5-5.1)
[2017-03-07 07:01] LABS: ALB/GLOB RATIO 0.6 (0.9-2)
--- NOTE | 2017-03-07 07:04 | Clinical Documentation Query ---
Dr. LYNCH [facility] : CLINICAL DOCUMENTATION QUERY Patient is a 46 year old female admitted for evaluation and treatment of cellulitis. BMI noted (per EMR documentation) to be 46.8 kg/m*m. In order to capture this clinically relevant information, an associated condition must be explicitly documented by the provider. As appropriate, consider documentation as suggested below. Thank you. In your clinical opinion is this patient: ( + ) Obese ( ) Other explanation of clinical findings (Please Explain) ( ) Unable to determine (Please Define) ( ) Need to Discuss ( ) Not Agree The medical record reflects the following clinical findings, treatment, and risk factors. Clinical Indicators: As above Treatment: Regular diet Risk Factors: Caloric intake > Caloric expenditure Please clarify and document your clinical opinion in the progress notes and discharge summary. Terms such as "probable", "suspected", "likely", "questionable", "possible", or "still to be ruled out" are acceptable. IF IN AGREEMENT, YOU MUST DOCUMENT ABOVE DIAGNOSTIC STATEMENT IN DAILY PROGRESS NOTES AND DISCHARGE SUMMARY. This document is not part of the patient's record. Thank You, Sean Vines, RN [phone]
[2017-03-07 07:13] VITALS: BP 125/78; PULSE 65; TEMP 36.8; O2SAT 100
[2017-03-07 07:23] LABS: BASO ABS # 0.08 K/uL (0-0.2); COMPLETE YES; EOS % 1.3 %; IG% 0.4 %; LYMPH % 12.6 %; LYMPH ABS # 1.06 K/uL (1.2-3.4); MONO % 5.9 %; NEUT % 78.8 %
[2017-03-07 08:00] VITALS: O2SAT 100
[2017-03-07] MEDS: MICONAZOLE NITRATE POWDER 43 GM EXT SCH ×2 (09:00→20:27)
--- NOTE | 2017-03-07 12:25 | DIAGNOSTIC IMAGING REPORT ---
ABDOMEN AND PELVIS CT WITHOUT CONTRAST CT DOSE: 858.30 mGy.cm HISTORY: Generalized abdominal pain. R/O pelvic mass/Obstruction TECHNIQUE: Multiaxial CT images of the abdomen and pelvis were performed without contrast. A dose lowering technique was utilized adhering to the principles of ALARA. COMPARISON STUDY: None. FINDINGS: The lung bases are clear. No pneumoperitoneum. No pneumatosis. Moderate osteitis pubis. No fractures within the visualized osseous structures. Fat-containing midline epigastric hernia. The hernia sac measures 8 cm. The neck of the hernia measures 1.7 cm. The unenhanced liver, spleen, adrenal glands, kidneys, and pancreas are unremarkable. Normal gallbladder. No retroperitoneal lymphadenopathy. The bladder is moderately distended. There is questionable thickening of the endometrial stripe which measures up to 2 cm. However, this is not well visualized on this noncontrast study. No adnexal masses. Normal ovaries. Suboptimal evaluation for bowel pathology due to the lack of intravenous and oral contrast. However, there is no definite bowel wall thickening or obstruction. Normal appendix. IMPRESSION: 1. No definite bowel wall thickening or obstruction. 2. Moderately distended bladder. 3. Questionable thickening of the endometrium which is not well visualized on this noncontrast study. Follow-up pelvic ultrasound is recommended for further evaluation. 4. Normal bilateral ovaries. No adnexal masses. 5. Midline fat-containing epigastric hernia. Electronically signed by: Allen Shea M.D. 03/07/2017 12:23 PM Dictated Date/Time: 03/07/2017 12:13 PM
--- NOTE | 2017-03-07 12:47 | DIAGNOSTIC IMAGING REPORT ---
CHEST 2 VIEWS ROUTINE HISTORY: 46 years-old Female acute chest pain with history of congestive heart failure. COMPARISON: Chest radiograph 03/01/2017 TECHNIQUE: Frontal and lateral views of the chest FINDINGS: Cardiac silhouette is again mildly enlarged. Prior median sternotomy. There is no pneumothorax, pleural effusion, focal airspace consolidation or overt pulmonary edema. Bones appear grossly intact. IMPRESSION: Mild cardiomegaly without overt pulmonary edema. The above report was generated using voice recognition software. It may contain grammatical, syntax or spelling errors. Electronically signed by: Roque Paez M.D. 03/07/2017 12:45 PM Dictated Date/Time: 03/07/2017 12:44 PM
[2017-03-07] MEDS ORDERED: PERFLUTREN LIPID MICROSPHERE (DEFINITY) IV ONE (14:05)
[2017-03-07] MEDS ORDERED: FUROSEMIDE 40 MG TAB PO ONE (14:58)
[2017-03-07] MEDS ORDERED: POTASSIUM CHLORIDE 10 MEQ TABCR PO ONE (15:00)
[2017-03-07 15:13] VITALS: BP 122/80; PULSE 73; TEMP 36.5; O2SAT 97
--- NOTE | 2017-03-07 15:17 | Progress Note ---
Internal Med Progress Note Date of Service: Mar 07, 2017. Provider Documentation: SUBJECTIVE: The patient was seen and examined Denies any complaints Sister complains of edematous legs and even upper part of the body and especially thighs NO SOB OBJECTIVE: Vital Signs-as noted below Exam: General-no distress at rets Eyes-normal ENT-normal Neck-supple Lungs-Clear to ausucltate bilaterally Heart-regular Abdomen-Benign,no masses,bowel sound present Extremities-Trace edema bilaterally in legs pronounced edema of the thighs Has bilateral varicose veins ,pronounced in lower legs with signs of Phlebitis Neuro-AA Mild mental retardation from Down syndrome Lab data as noted below. ASSESSMENT & PLAN: This is a 46 year old Female with history of Down's Syndrome, with past surgical history of cardiac surgery, with cellulitis of upper extremities treated in Aug 2016, with previous emergency evaluation for right lower extremity cellulitis and started on Amoxicillin-Clavulanate PO BID for 5 days since 03/01/2017 when she was last seen in the ED in [facility] for erythema and swelling Cellulitis of the right legs complicated by superficial thrombophlebitis -previously on Amoxicillin-Clavulanate PO BID for 5 days since 03/01/2017 -started on Zosyn 3.375 and will continue for now -will try topical NSAID Superficial Thrombophlebitis Rule out DVT -bilateral nonocclusive thrombi in superficial varicosities with possible chronic nonocclusive thrombus in the right common femoral vein on 03/01/2017 -ultrasound ordered on 03/06/2017 to repeat study as swelling or RLE has not completely resolved -Lovenox 40 mg subc daily for DVT prophylaxis unless there is need to actively treat for DVT -May lead to DVT -will need periodic US of the legs to R/O DVT and need for full anticoagulation Hematuria -review or urinalysis shows RBC -patient has history of being on Depo-Provera and this may be break through bleed versus other causes of hematuria, no casts in the UA so less likely glomerular source - test negative -trend CBC, maintain type and screen Rash under abdomen pannus -miconazole powder BID History of Hypothyroidism -continue home Levothyroxine 112 mcg daily Probable Fluid Overload Reported to have swelling of the thighs for the last week or so Will get CT of the Abdomen and Pelvis to R?O any obstruction ECHO to evaluate Cardiac function Guardianship/Medical Decision making -asked patient's sister in law and reported legal guardian Maria Del Carmen An ) to bring in her paperwork that supports her status in helping with patient's medical decision making Discussed with the POA Vital Signs: Date Time Temp Pulse Resp B/P (MAP) Pulse Ox O2 Delivery O2 Flow Rate FiO2 03/07/17 08:00 100 Room Air 2.0 03/07/17 07:13 36.8 65 20 125/78 (94) 100 Room Air 03/07/17 00:00 Room Air 03/06/17 23:32 36.8 90 18 119/75 (90) 95 2.0 03/06/17 16:00 Room Air Lab Results: Results Past 24 Hours Test 03/07/17 02:07 03/07/17 05:42 Range/Units Urine Test NEG NEG White Blood Count 8.41 4.8-10.8 K/uL Red Blood Count 4.50 4.2-5.4 M/uL Hemoglobin 13.9 12.0-16.0 g/dL Hematocrit 43.0 37-47 % Mean Corpuscular Volume 95.6 80-100 fL Mean Corpuscular Hemoglobin 30.9 25-34 pg Mean Corpuscular Hemoglobin Concent 32.3 32-36 g/dl Platelet Count 212 130-400 K/uL Mean Platelet Volume 10.0 7.4-10.4 fL Neutrophils (%) (Auto) 78.8 % Lymphocytes (%) (Auto) 12.6 % Monocytes (%) (Auto) 5.9 % Eosinophils (%) (Auto) 1.3 % Basophils (%) (Auto) 1.0 % Neutrophils # (Auto) 6.63 1.4-6.5 K/uL Lymphocytes # (Auto) 1.06 1.2-3.4 K/uL Monocytes # (Auto) 0.50 0.11-0.59 K/uL Eosinophils # (Auto) 0.11 0-0.5 K/uL Basophils # (Auto) 0.08 0-0.2 K/uL RDW Standard Deviation 54.4 36.4-46.3 fL RDW Coefficient of Variation 15.6 11.5-14.5 % Immature Granulocyte % (Auto) 0.4 % Immature Granulocyte # (Auto) 0.03 0.00-0.02 K/uL Sodium Level 140 136-145 mmol/L Potassium Level 3.8 3.5-5.1 mmol/L Chloride Level 108 98-107 mmol/L Carbon Dioxide Level 26 21-32 mmol/L Anion Gap 6.0 3-11 mmol/L Blood Urea Nitrogen 10 7-18 mg/dl Creatinine 0.74 0.60-1.20 mg/dl Est Creatinine Clear Calc Drug Dose 83.1 ml/min Estimated GFR () 114.2 Estimated GFR (Non- 98.5 BUN/Creatinine Ratio 13.1 10-20 Random Glucose 90 70-99 mg/dl Calcium Level 8.1 8.5-10.1 mg/dl Total Bilirubin 0.6 0.2-1 mg/dl Aspartate Amino Transf (AST/SGOT) 25 15-37 U/L Alanine Aminotransferase (ALT/SGPT) 25 12-78 U/L Alkaline Phosphatase 75 45-117 U/L Total Protein 7.0 6.4-8.2 gm/dl Albumin 2.5 3.4-5.0 gm/dl Globulin 4.5 2.5-4.0 gm/dl Albumin/Globulin Ratio 0.6 0.9-2
[2017-03-07] MEDS: ENOXAPARIN 40 MG/0.4 ML SYR SQ SCH (15:58)
--- NOTE | 2017-03-07 17:20 | ECHOCARDIOGRAM REPORT ---
*NOTICE TO RECEIVING REPUBLICAN AGENCY This information is strictly Confidential and protected under [place] law. [place] law prohibits you from making any further disclosure of this information unless further disclosure is expressly permitted by the written consent of the person to whom it pertains or is authorized by law. A general authorization for the release of medical or other information is not sufficient for this purpose. Hospital accepts no responsibility if the information is made available to any other person, INCLUDING THE PATIENT. Interpretation Summary * Name: ROSALVA HUGHES Study Date: 03/07/2017 01:48 PM BP: 125/78 mmHg * Patient Location: .[id number]\S\1 HR: 69 * : 1970 (M/d/yyyy) Gender: Female Height: 54 in * Age: 46 yrs Ethnicity: CA Weight: 194 lb * Ordering Physician: Horace Chapin * Referring Physician: Self, Referred * Performed By: Ky Col[facility] * * Reason For Study: Fluid overload, Down Syndrome with Cardiac Surgery * BSA: 1.7 m2 * -- Conclusions -- * Left ventricular systolic function is normal. * No definite wall motion abnormalities. * Ejection Fraction = 65-70%. * There is mild concentric left ventricular hypertrophy. * Mild aortic stenosis is suggested by the Doppler study Procedure Details * A contrast injection of Definity was performed to improve assessment of LV function. * Contrast was injected into an intravenous site in the right arm. * One vial of Definity ultrasound contrast was diluted in normal saline to a total volume of 10 ml. A total of '4' ml of solution was administered during imaging. * Lot # [id number] of Definity utilized for procedure. * Expiration date 1AUG18. Left Ventricle * The left ventricle is normal in size. * There is mild concentric left ventricular hypertrophy. * Ejection Fraction = 65-70%. * Left ventricular systolic function is normal. * No definite wall motion abnormalities. Right Ventricle * The right ventricle is not well visualized. Atria * The left atrial size is normal. * Right atrium not well visualized. * No ASD detected; PFO is not assessed. Mitral Valve * The mitral valve is grossly normal. * Significant mitral regurgitation is absent. Tricuspid Valve * The tricuspid valve is not well visualized. * Significant tricuspid regurgitation is absent. Aortic Valve * The aortic valve is not well visualized. * Mild aortic stenosis is suggested by the Doppler study * There is no significant aortic regurgitation. Pulmonic Valve * The pulmonary valve is not well seen, but the Doppler examination is normal without significant regurgitation or stenosis. Great Vessels * The aortic root is normal size. Pericardium/Pleural * There is no pericardial effusion. MMode 2D Measurements and Calculations IVSd 0.94 cm LVIDd 4.1 cm LVIDs 2.2 cm LVPWd 0.88 cm IVS/LVPW 1.1 FS 46.7 % EDV(Teich) 73.5 ml ESV(Teich) 15.7 ml EF(Teich) 78.6 % EDV(cubed) 68.0 ml ESV(cubed) 10.3 ml EF(cubed) 84.9 % LV mass(C)d 115.5 grams LV mass(C)dI 67.7 grams/m\S\2 SV(Teich) 57.7 ml SI(Teich) 33.8 ml/m\S\2 SV(cubed) 57.7 ml SI(cubed) 33.8 ml/m\S\2 Ao root diam 2.5 cm Ao root area 4.7 cm\S\2 LVOT diam 2.1 cm LVOT area 3.3 cm\S\2 LVAd ap4 22.6 cm\S\2 LVLd ap4 6.9 cm EDV(MOD-sp4) 59.6 ml EDV(sp4-el) 62.7 ml LVAs ap4 8.1 cm\S\2 LVLs ap4 4.4 cm ESV(MOD-sp4) 12.1 ml ESV(sp4-el) 12.7 ml EF(MOD-sp4) 79.7 % EF(sp4-el) 79.8 % LVAd ap2 20.5 cm\S\2 LVLd ap2 7.1 cm EDV(MOD-sp2) 48.8 ml EDV(sp2-el) 50.1 ml LVAs ap2 10.2 cm\S\2 LVLs ap2 6.5 cm ESV(MOD-sp2) 14.1 ml ESV(sp2-el) 13.6 ml EF(MOD-sp2) 71.1 % EF(sp2-el) 72.8 % LVLd %diff 2.6 % EDV(MOD-bp) 53.7 ml LVLs %diff 32.9 % ESV(MOD-bp) 15.3 ml EF(MOD-bp) 71.6 % SV(MOD-sp4) 47.5 ml SI(MOD-sp4) 27.8 ml/m\S\2 SV(MOD-sp2) 34.7 ml SI(MOD-sp2) 20.3 ml/m\S\2 SV(MOD-bp) 38.5 ml SI(MOD-bp) 22.5 ml/m\S\2 SV(sp4-el) 50.0 ml SI(sp4-el) 29.3 ml/m\S\2 SV(sp2-el) 36.5 ml SI(sp2-el) 21.4 ml/m\S\2 Doppler Measurements and Calculations MV E max [place] 75.4 cm/sec MV A max [place] 92.2 cm/sec MV E/A 0.82 MV dec time 0.22 sec Ao V2 max 263.4 cm/sec Ao max PG 27.7 mmHg Ao max PG (full) 22.6 mmHg Ao V2 mean 155.4 cm/sec Ao mean PG 12.1 mmHg Ao mean PG (full) 9.7 mmHg Ao V2 VTI 48.2 cm [place](I,A) 1.6 cm\S\2 [place](I,D) 1.6 cm\S\2 [place](V,A) 1.4 cm\S\2 [place](V,D) 1.4 cm\S\2 LV V1 max PG 5.1 mmHg LV V1 mean PG 2.5 mmHg LV V1 max 113.4 cm/sec LV V1 mean 72.6 cm/sec LV V1 VTI 22.7 cm SV(Ao) 227.3 ml SI(Ao) 133.1 ml/m\S\2 SV(LVOT) 75.1 ml SI(LVOT) 44.0 ml/m\S\2 TR max [place] 237.3 cm/sec
[2017-03-08 00:26] VITALS: BP 104/72; PULSE 79; TEMP 36.8; O2SAT 94
[2017-03-08] MEDS: PIPERACILL/TAZOBAC IV 3.375 GM in DEXTROSE 5% 100ML 100 ML IV SCH ×3 (01:43→18:32)
[2017-03-08] MEDS: LEVOTHYROXINE 112 MCG TAB PO SCH (06:06)
[2017-03-08 07:43] VITALS: BP 97/68; PULSE 58; TEMP 36.7; O2SAT 96
[2017-03-08 08:00] VITALS: O2SAT 100
[2017-03-08] MEDS: MICONAZOLE NITRATE POWDER 43 GM EXT SCH ×2 (08:43→21:49)
[2017-03-08] MEDS: POTASSIUM CHLORIDE 10 MEQ TABCR PO SCH (08:44)
[2017-03-08] MEDS: FUROSEMIDE 40 MG TAB PO SCH (08:44)
--- NOTE | 2017-03-08 13:47 | Progress Note ---
Internal Med Progress Note Date of Service: Mar 08, 2017. Provider Documentation: SUBJECTIVE: The patient was seen and examined Denies any complaints Sister complains of edematous legs and even upper part of the body and especially thighs Clinically much better today Ambulating without much symptoms OBJECTIVE: Vital Signs-as noted below Exam: General-no distress at rest Eyes-normal ENT-normal Neck-supple Lungs-Clear to ausucltate bilaterally Heart-regular Abdomen-Benign,no masses,bowel sound present Extremities-Trace edema bilaterally in legs pronounced edema of the thighs Has bilateral varicose veins ,pronounced in lower legs with signs of Phlebitis Neuro-AA Mild mental retardation from Down syndrome Lab data as noted below. ASSESSMENT & PLAN: This is a 46 year old Female with history of Down's Syndrome, with past surgical history of cardiac surgery, with cellulitis of upper extremities treated in Aug 2016, with previous emergency evaluation for right lower extremity cellulitis and started on Amoxicillin-Clavulanate PO BID for 5 days since 03/01/2017 when she was last seen in the ED in [facility] for erythema and swelling Cellulitis of the right legs complicated by superficial thrombophlebitis -previously on Amoxicillin-Clavulanate PO BID for 5 days since 03/01/2017 -started on Zosyn 3.375 and will continue for now -will try topical NSAID -clinically unchanged Superficial Thrombophlebitis Rule out DVT -bilateral nonocclusive thrombi in superficial varicosities with possible chronic nonocclusive thrombus in the right common femoral vein on 03/01/2017 -ultrasound ordered on 03/06/2017 to repeat study as swelling or RLE has not completely resolved -Lovenox 40 mg subc daily for DVT prophylaxis unless there is need to actively treat for DVT -May lead to DVT -will need periodic US of the legs to R/O DVT and need for full anticoagulation Hematuria -review or urinalysis shows RBC -patient has history of being on Depo-Provera and this may be break through bleed versus other causes of hematuria, no casts in the UA so less likely glomerular source - test negative -trend CBC, maintain type and screen -resolved Probable Fluid Overload Reported to have swelling of the thighs for the last week or so Will get CT of the Abdomen and Pelvis to R/O any obstruction -Unremarkable ECHO to evaluate Cardiac function:: * Left ventricular systolic function is normal. * No definite wall motion abnormalities. * Ejection Fraction = 65-70%. * There is mild concentric left ventricular hypertrophy. Mild aortic stenosis is suggested by the Doppler study Will continue small dose of Lasix and K supplement Rash under abdomen pannus -miconazole powder BID History of Hypothyroidism -continue home Levothyroxine 112 mcg daily Guardianship/Medical Decision making -asked patient's sister in law and reported legal guardian Maria Del Carmen An ([phone]) to bring in her paperwork that supports her status in helping with patient's medical decision making Discussed again with the POA Vital Signs: Date Time Temp Pulse Resp B/P (MAP) Pulse Ox O2 Delivery O2 Flow Rate FiO2 03/08/17 08:00 100 Room Air 03/08/17 07:43 36.7 58 18 97/68 (78) 96 Room Air 03/08/17 00:26 36.8 79 20 104/72 (83) 94 Room Air 03/08/17 00:00 Room Air 03/07/17 15:45 Room Air 03/07/17 15:13 36.5 73 20 122/80 (94) 97
[2017-03-08 15:53] VITALS: BP 95/61; PULSE 86; TEMP 36.8; O2SAT 93
[2017-03-08] MEDS: ENOXAPARIN 40 MG/0.4 ML SYR SQ SCH (15:55)
[2017-03-08] MEDS: DICLOFENAC SOD 1% GEL 100 GM TUBE EXT SCH (21:49)
[2017-03-08 23:05] VITALS: BP 101/67; PULSE 68; TEMP 36.7; O2SAT 95
[2017-03-09] MEDS: PIPERACILL/TAZOBAC IV 3.375 GM in DEXTROSE 5% 100ML 100 ML IV SCH ×2 (01:34→12:23)
[2017-03-09] MEDS: LEVOTHYROXINE 112 MCG TAB PO SCH (05:37)
[2017-03-09 06:20] LABS: HEMATOCRIT 43.1 % (37-47); MEAN CELL VOLUME 95.1 fL (80-100); MEAN CORPUSCULAR HEMOGLOBIN 31.1 pg (25-34); MEAN CORPUSCULAR HGB CONC 32.7 g/dl (32-36); MEAN PLATELET VOLUME 9.8 fL (7.4-10.4); PLATELET COUNT 258 K/uL (130-400); RED BLOOD COUNT 4.53 M/uL (4.2-5.4); WHITE BLOOD COUNT 9.54 K/uL (4.8-10.8)
[2017-03-09 07:17] VITALS: BP 110/70; PULSE 64; TEMP 36.4; O2SAT 99
[2017-03-09 08:00] VITALS: O2SAT 99
[2017-03-09] MEDS: POTASSIUM CHLORIDE 10 MEQ TABCR PO SCH (08:43)
[2017-03-09] MEDS: DICLOFENAC SOD 1% GEL 100 GM TUBE EXT SCH (08:43)
[2017-03-09] MEDS: MICONAZOLE NITRATE POWDER 43 GM EXT SCH (08:43)
[2017-03-09] MEDS: FUROSEMIDE 40 MG TAB PO SCH (08:43)
--- NOTE | 2017-03-09 13:32 | Progress Note ---
Internal Med Progress Note Date of Service: Mar 09, 2017. Provider Documentation: SUBJECTIVE: The patient was seen and examined Sister complains of edematous legs and even upper part of the body and especially thighs Clinically much better today Ambulating without much symptoms Ready to go home today Denies any complaints OBJECTIVE: Vital Signs-as noted below Exam: General-no distress at rest Eyes-normal ENT-normal Neck-supple Lungs-Clear to ausucltate bilaterally Heart-regular Abdomen-Benign,no masses,bowel sound present Extremities-Trace edema bilaterally in legs pronounced edema of the thighs-improves a bit Has bilateral varicose veins ,pronounced in lower legs with signs of Phlebitis Neuro-AA Mild mental retardation from Down syndrome Lab data as noted below. ASSESSMENT & PLAN: This is a 46 year old Female with history of Down's Syndrome, with past surgical history of cardiac surgery, with cellulitis of upper extremities treated in Aug 2016, with previous emergency evaluation for right lower extremity cellulitis and started on Amoxicillin-Clavulanate PO BID for 5 days since 03/01/2017 when she was last seen in the ED in [facility] for erythema and swelling Cellulitis of the right legs complicated by superficial thrombophlebitis -previously on Amoxicillin-Clavulanate PO BID for 5 days since 03/01/2017 -started on Zosyn 3.375 and will continue for now -will try topical NSAID -clinically better today -will change antibiotic to Keflex for 10 days in total Superficial Thrombophlebitis Rule out DVT -bilateral nonocclusive thrombi in superficial varicosities with possible chronic nonocclusive thrombus in the right common femoral vein on 03/01/2017 -ultrasound ordered on 03/06/2017 to repeat study as swelling or RLE has not completely resolved -Lovenox 40 mg subc daily for DVT prophylaxis unless there is need to actively treat for DVT -May lead to DVT -will need periodic US of the legs to R/O DVT and need for full anticoagulation -continue topical NSAID Hematuria -review or urinalysis shows RBC -patient has history of being on Depo-Provera and this may be break through bleed versus other causes of hematuria, no casts in the UA so less likely glomerular source - test negative -trend CBC, maintain type and screen -resolved Probable Fluid Overload Reported to have swelling of the thighs for the last week or so Will get CT of the Abdomen and Pelvis to R/O any obstruction -Unremarkable ECHO to evaluate Cardiac function:: * Left ventricular systolic function is normal. * No definite wall motion abnormalities. * Ejection Fraction = 65-70%. * There is mild concentric left ventricular hypertrophy. Mild aortic stenosis is suggested by the Doppler study Will continue small dose of Lasix and K supplement Rash under abdomen pannus -miconazole powder BID History of Hypothyroidism -continue home Levothyroxine 112 mcg daily Guardianship/Medical Decision making -asked patient's sister in law and reported legal guardian Maria Del Carmen An ) to bring in her paperwork that supports her status in helping with patient's medical decision making Discussed again with the POA Will discharge home today Vital Signs: Date Time Temp Pulse Resp B/P (MAP) Pulse Ox O2 Delivery O2 Flow Rate FiO2 03/09/17 08:00 99 Room Air 2.0 03/09/17 07:17 36.4 64 20 110/70 (83) 99 Room Air 03/09/17 00:00 Room Air 03/08/17 23:05 36.7 68 18 101/67 (78) 95 Room Air 03/08/17 16:15 Room Air 03/08/17 15:53 36.8 86 18 95/61 (72) 93 Room Air Lab Results: Results Past 24 Hours Test 03/09/17 05:46 Range/Units White Blood Count 9.54 4.8-10.8 K/uL Red Blood Count 4.53 4.2-5.4 M/uL Hemoglobin 14.1 12.0-16.0 g/dL Hematocrit 43.1 37-47 % Mean Corpuscular Volume 95.1 80-100 fL Mean Corpuscular Hemoglobin 31.1 25-34 pg Mean Corpuscular Hemoglobin Concent 32.7 32-36 g/dl RDW Standard Deviation 54.6 36.4-46.3 fL RDW Coefficient of Variation 15.7 11.5-14.5 % Platelet Count 258 130-400 K/uL Mean Platelet Volume 9.8 7.4-10.4 fL Creatinine 1.00 0.60-1.20 mg/dl Est Creatinine Clear Calc Drug Dose 61.5 ml/min Estimated GFR () 79.4 Estimated GFR (Non- 68.5
[2017-03-09] MEDS ORDERED: LCTX PO (13:42)
[2017-03-09] MEDS ORDERED: FURO-85 PO (13:42)
[2017-03-09] MEDS ORDERED: CEPH500C2 PO (13:42)
--- NOTE | 2017-03-09 13:45 | Discharge Instructions ---
Discharge Instructions Date of Service Mar 09, 2017. Admission Reason for Admission: Cellulitis Discharge Discharge Diagnosis / Problem: Cellulitis of Right Leg,Superficial Thrombophlebitis Discharge Goals Goal(s): Prevent Disease Progression Activity Recommendations Activity Limitations: resume your previous activity . Instructions / Follow-Up Instructions / Follow-Up Dr Bhandari on 03/13/17 at 1:00PM. Will need US legs in 6 weeks to R/O DVT Current Hospital Diet Patient's current hospital diet: Regular Diet Discharge Diet Recommended Diet: Regular Diet Pending Studies Studies pending at discharge: no Medical Emergencies . Who to Call and When: Medical Emergencies: If at any time you feel your situation is an emergency, please call 911 immediately. . Non-Emergent Contact Non-Emergency issues call your: Primary Care Provider . Past History Medical & Surgical History: (1) Cellulitis (2) Down syndrome (3) Hypothyroidism (4) Mild mental retardation (5) H/O atrial septal defect repair . "Provider Documentation" section prepared by Horace Chapin. . VTE Core Measure Inpt VTE Proph given/why not?: Enoxaparin (Lovenox)SQ
[2017-03-09] MEDS ORDERED: VLTG EXT (13:46)
[2017-03-09 14:02] VITALS: BP 110/70; PULSE 64; TEMP 36.4; O2SAT 99
--- NOTE | 2017-03-10 08:27 | Discharge Summary ---
Discharge Summary Date of Service Mar 10, 2017. Discharge Summary Admission Date: Mar 06, 2017 at 12:06 Discharge Date: Mar 09, 2017 Discharge Disposition: Home Principal Diagnosis: Cellulitis of Right Leg,Superficial Thrombophlebitis Secondary Diagnoses/Problems: Please see H&P and Hospital progress note Medication Reconciliation New Medications: Cephalexin Monohydrate (Keflex) 500 Mg Cap 500 MG PO TID, #21 CAP Furosemide (Lasix) 20 Mg Tab 20 MG PO UD, #30 TAB Take 1 tab PO for 2-3 days if gain in weight >2lbs in a week. Lactobacillus Acidophilus (Lactinex) Tab 2 TAB PO BID, #30 TAB Diclofenac Sod (Voltaren) 100 Appln/100 Gm Gel 1 APPLN EXT BID for 30 Days, #1 TUBE Continued Medications: Levothyroxine Sodium (Synthroid) 112 Mcg Tab 112 MCG PO QAM, TAB Discontinued Medications: Amoxicillin & Pot Clavulanate (Augmentin 875-125 mg) 1 Tab Tab 1 TAB PO BID for 10 Days, #20 TAB Admission Information HPI (per Admitting provider): This is a 46 year old Female with history of Down's Syndrome, with past surgical history of cardiac surgery, with cellulitis of upper extremities treated in Aug 2016, with previous emergency evaluation for right lower extremity cellulitis and started on Amoxicillin-Clavulanate PO BID for 5 days since 03/01/2017 when she was last seen in the ED in [facility]. As per accompanying visitor, patient's sister in law and reported legal guardian Maria Del Carmen An ([phone]) that patient developed erythema and swelling started on 03/01/2017 and since that time the swelling has been reduced since being on PO antibiotics. She brought patient to the ED today because symptoms persistent. Of note, patient was to have bilateral nonocclusive thrombi in superficial varicosities with possible chronic nonocclusive thrombus in the right common femoral vein and patient was not deemed to have thrombi that required anticoagulation when last seen in the ED on 03/01/2017. Patient denies shortness of breath. Denies pain except when touching the erythematous area of anterior right leg. No reported history of fevers at home. Patient's sister in law comments that patient minimizes complaints even when ill. Sister in law also reporting that patient had blood in urine when she went to the bathroom in the ED. Past Medical/Surgical History Medical Problems: (1) Down syndrome Status: Chronic (2) Hyperinsulinemia Status: Chronic (3) Hypothyroidism Status: Chronic (4) Mild mental retardation Status: Chronic Surgical Problems: (1) H/O atrial septal defect repair Status: Chronic (2) History of open heart surgery Status: Resolved Family History FH: CVA (cerebrovascular accident) FATHER FH: breast cancer MOTHER Social History Smoking Status: Never Smoker Alcohol Use: none Drug Use: none Housing status: lives with family Immunizations History of Influenza Vaccine: Yes Influenza Vaccine Date: Apr 29, 2015 History of Tetanus Vaccine?: Yes Tetanus Immunization Date: Mar 31, 2008 Allergies Coded Allergies: No Known Allergies (Unverified , 03/06/17) Home Medications Scheduled Amoxicillin & Pot Clavulanate (Augmentin 875-125 mg), 1 TAB PO BID Levothyroxine Sodium (Synthroid), 112 MCG PO QAM Review of Systems Constitutional: No fever Eyes: No discharge ENT: No sore throat, No trouble swallowing Respiratory: No cough, No shortness of breath Cardiovascular: No chest pain Abdomen: No pain, No diarrhea Musculoskeletal: + swelling (right lower extremity) Genitourinary - Female: + hematuria, No dysuria Neurologic: No paralysis Psychiatric: No substance abuse Endocrine: No fatigue Hematologic / Lymphatic: No swollen lymph nodes Integumentary: + rash (beneath abdomen pannus) Allergic / Immunologic: No food allergies Physical Ex - H&P Physical Exam Vital Signs Date Time Temp Pulse Resp B/P (MAP) Pulse Ox O2 Delivery O2 Flow Rate FiO2 03/06/17 11:41 Room Air 03/06/17 10:48 73 130/70 99 Room Air 03/06/17 08:49 36.8 71 18 131/85 99 Room Air General Appearance: no apparent distress Head: atraumatic Eyes: normal inspection, PERRL, EOMI, sclerae normal ENT: normal ENT inspection, hearing grossly normal, pharynx normal Neck: supple, no adenopathy, thyroid normal, trachea midline Respiratory/Chest: chest non-tender, lungs clear, normal breath sounds, no respiratory distress, no accessory muscle use Cardiovascular: regular rate, rhythm, normal peripheral pulses Abdomen/GI: normal bowel sounds, non tender, soft Back: normal inspection, no muscle spasm Extremities/Musculoskelatal: no calf tenderness, no pedal edema, + inflammation Neurologic/Psych: no motor/sensory deficits, alert, oriented x 3 Diagnostics - H&P Diagnostics Laboratory Results Results Past 24 Hours Test 03/06/17 09:45 03/06/17 10:21 03/06/17 12:06 Range/Units White Blood Count 8.32 4.8-10.8 K/uL Red Blood Count 4.31 4.2-5.4 M/uL Hemoglobin 13.9 12.0-16.0 g/dL Hematocrit 41.0 37-47 % Mean Corpuscular Volume 95.1 80-100 fL Mean Corpuscular Hemoglobin 32.3 25-34 pg Mean Corpuscular Hemoglobin Concent 33.9 32-36 g/dl Platelet Count 213 130-400 K/uL Mean Platelet Volume 10.1 7.4-10.4 fL Neutrophils (%) (Auto) 82.3 % Lymphocytes (%) (Auto) 10.3 % Monocytes (%) (Auto) 4.3 % Eosinophils (%) (Auto) 1.7 % Basophils (%) (Auto) 1.0 % Neutrophils # (Auto) 6.85 1.4-6.5 K/uL Lymphocytes # (Auto) 0.86 1.2-3.4 K/uL Monocytes # (Auto) 0.36 0.11-0.59 K/uL Eosinophils # (Auto) 0.14 0-0.5 K/uL Basophils # (Auto) 0.08 0-0.2 K/uL RDW Standard Deviation 54.7 36.4-46.3 fL RDW Coefficient of Variation 15.7 11.5-14.5 % Immature Granulocyte % (Auto) 0.4 % Immature Granulocyte # (Auto) 0.03 0.00-0.02 K/uL Sodium Level 141 136-145 mmol/L Potassium Level 3.5 3.5-5.1 mmol/L Chloride Level 109 98-107 mmol/L Carbon Dioxide Level 28 21-32 mmol/L Anion Gap 4.0 3-11 mmol/L Blood Urea Nitrogen 12 7-18 mg/dl Creatinine 0.78 0.60-1.20 mg/dl Est Creatinine Clear Calc Drug Dose 78.9 ml/min Estimated GFR () 107.2 Estimated GFR (Non- 92.5 BUN/Creatinine Ratio 14.7 10-20 Random Glucose 97 70-99 mg/dl Lactic Acid Level 1.3 0.4-2.0 mmol/L Calcium Level 8.0 8.5-10.1 mg/dl Total Bilirubin 0.6 0.2-1 mg/dl Aspartate Amino Transf (AST/SGOT) 22 15-37 U/L Alanine Aminotransferase (ALT/SGPT) 21 12-78 U/L Alkaline Phosphatase 87 45-117 U/L Total Protein 7.5 6.4-8.2 gm/dl Albumin 2.8 3.4-5.0 gm/dl Globulin 4.7 2.5-4.0 gm/dl Albumin/Globulin Ratio 0.6 0.9-2 Urine Color YELLOW Urine Appearance CLEAR CLEAR Urine pH 7.0 4.5-7.5 Urine Specific Avery 1.025 1.000-1.030 Urine Protein NEG NEG Urine Glucose (UA) NEG NEG Urine Ketones NEG NEG Urine Occult Blood 2+ NEG Urine Nitrite NEG NEG Urine Bilirubin NEG NEG Urine Urobilinogen NEG NEG Urine Leukocyte Esterase SMALL NEG Urine WBC (Auto) 1-5 0-5 /hpf Urine RBC (Auto) >30 0-4 /hpf Urine Hyaline Casts (Auto) 1-5 0-5 /lpf Urine Epithelial Cells (Auto) >30 0-5 /lpf Urine Bacteria (Auto) NEG NEG Microbiology Results 03/06/17 Blood Culture, Received Pending 03/06/17 Blood Culture, Received Pending Diagnostic Radiology Lower Extremity Ultrasound from previous ED visit on 03/01/2017 FINDINGS: Right: Common femoral vein: Linear echogenic focus within the right common femoral vein, which is somewhat eccentric. Common femoral vein fully compressible. Femoral vein: Patent. Greater saphenous vein: Patent. Popliteal vein: Patent. Calf veins: Deep veins of the calf patent. Nonocclusive filling defect consistent with thrombus within a dilated superficial calf vein. Left: Common femoral vein: Patent. Femoral vein: Patent. Greater saphenous vein: Patent. Popliteal vein: Patent. Calf veins: Deep veins of the calf patent. Nonocclusive filling defect consistent with thrombus within a dilated superficial calf vein. Other: Subcutaneous edema in the superficial soft tissues of the right lower leg. Less pronounced subcutaneous edema in the left lower leg. IMPRESSION: 1. No convincing evidence of acute deep venous thrombosis. 2. Possible chronic nonocclusive thrombus in the right common femoral vein. 3. Bilateral nonocclusive thrombi in superficial varicosities of the calves. Electronically signed by: Praneeth Vance M.D. 03/01/2017 7:40 PM Dictated Date/Time: 03/01/2017 7:37 PM No prior EKG available Impression - H&P Impression Assessment and Plan This is a 46 year old Female with history of Down's Syndrome, with past surgical history of cardiac surgery, with cellulitis of upper extremities treated in Aug 2016, with previous emergency evaluation for right lower extremity cellulitis and started on Amoxicillin-Clavulanate PO BID for 5 days since 03/01/2017 when she was last seen in the ED in [facility] for erythema and swelling Patient otherwise is comfortable and speaking in full sentences on room air Plan to treat for cellulitis and rule out DVT or thrombophlebitis with ultrasound Cellulitis -previously on Amoxicillin-Clavulanate PO BID for 5 days since 03/01/2017 -blood cultures drawn in the ED on 03/06/2017 -Zosyn 3.375 grams Rule out DVT -bilateral nonocclusive thrombi in superficial varicosities with possible chronic nonocclusive thrombus in the right common femoral vein on 03/01/2017 -ultrasound ordered on 03/06/2017 to repeat study as swelling or RLE has not completely resolved -Lovenox 40 mg subc daily for DVT prophylaxis unless there is need to actively treat for DVT Hematuria -review or urinalysis shows RBC -patient has history of being on Depo-Provera and this may be break through bleed versus other causes of hematuria, no casts in the UA so less likely glomerular source -rule out -trend CBC, maintain type and screen Rash under abdomen pannus -miconazole powder BID History of Hypothyroidism -continue home Levothyroxine 112 mcg daily Electrolytes -serum potassium 3.5, check magnesium level, replete potassium Guardianship/Medical Decision making -asked patient's sister in law and reported legal guardian Maria Del Carmen An ) to bring in her paperwork that supports her status in helping with patient's medical decision making Advanced Directives Existing Advance Directive: No Existing Living Will: No Existing Power of Club Concierge: No Existing Health Care Proxy: No Resuscitation Status FULL RESUSCITATION VTE Prophylaxis VTE Risk Assessment Done? Y/N: Yes Risk Level: Moderate Physical Exam (per Admitting): General Appearance: no apparent distress Head: atraumatic Eyes: normal inspection, PERRL, EOMI, sclerae normal ENT: normal ENT inspection, hearing grossly normal, pharynx normal Neck: supple, no adenopathy, thyroid normal, trachea midline Respiratory/Chest: chest non-tender, lungs clear, normal breath sounds, no respiratory distress, no accessory muscle use Cardiovascular: regular rate, rhythm, normal peripheral pulses Abdomen/GI: normal bowel sounds, non tender, soft Back: normal inspection, no muscle spasm Extremities/Musculoskelatal: no calf tenderness, no pedal edema, + inflammation Neurologic/Psych: no motor/sensory deficits, alert, oriented x 3 Hospital Course This is a 46 year old Female with history of Down's Syndrome, with past surgical history of cardiac surgery, with cellulitis of upper extremities treated in Aug 2016, with previous emergency evaluation for right lower extremity cellulitis and started on Amoxicillin-Clavulanate PO BID for 5 days since 03/01/2017 when she was last seen in the ED in [facility] for erythema and swelling Cellulitis of the right legs complicated by superficial thrombophlebitis -previously on Amoxicillin-Clavulanate PO BID for 5 days since 03/01/2017 -started on Zosyn 3.375 and will continue for now -will try topical NSAID -clinically better today -will change antibiotic to Keflex for 10 days in total Superficial Thrombophlebitis Rule out DVT -bilateral nonocclusive thrombi in superficial varicosities with possible chronic nonocclusive thrombus in the right common femoral vein on 03/01/2017 -ultrasound ordered on 03/06/2017 to repeat study as swelling or RLE has not completely resolved -Lovenox 40 mg subc daily for DVT prophylaxis unless there is need to actively treat for DVT -May lead to DVT -will need periodic US of the legs to R/O DVT and need for full anticoagulation -continue topical NSAID Hematuria -review or urinalysis shows RBC -patient has history of being on Depo-Provera and this may be break through bleed versus other causes of hematuria, no casts in the UA so less likely glomerular source - test negative -trend CBC, maintain type and screen -resolved Probable Fluid Overload Reported to have swelling of the thighs for the last week or so Will get CT of the Abdomen and Pelvis to R/O any obstruction -Unremarkable ECHO to evaluate Cardiac function:: * Left ventricular systolic function is normal. * No definite wall motion abnormalities. * Ejection Fraction = 65-70%. * There is mild concentric left ventricular hypertrophy. Mild aortic stenosis is suggested by the Doppler study Will continue small dose of Lasix and K supplement Rash under abdomen pannus -miconazole powder BID History of Hypothyroidism -continue home Levothyroxine 112 mcg daily Guardianship/Medical Decision making -asked patient's sister in law and reported legal guardian Maria Del Carmen An ) to bring in her paperwork that supports her status in helping with patient's medical decision making Discussed again with the POA Will discharge home today Total time spent on discharge = 35 minutes This includes examination of the patient, discharge planning, medication reconciliation, and communication with other providers. Discharge Instructions Date of Service Mar 09, 2017. Admission Reason for Admission: Cellulitis Discharge Discharge Diagnosis / Problem: Cellulitis of Right Leg,Superficial Thrombophlebitis Discharge Goals Goal(s): Prevent Disease Progression Activity Recommendations Activity Limitations: resume your previous activity . Instructions / Follow-Up Instructions / Follow-Up Dr Bhandari on 03/13/17 at 1:00PM. Will need US legs in 6 weeks to R/O DVT Current Hospital Diet Patient's current hospital diet: Regular Diet Discharge Diet Recommended Diet: Regular Diet Pending Studies Studies pending at discharge: no Medical Emergencies . Who to Call and When: Medical Emergencies: If at any time you feel your situation is an emergency, please call 911 immediately. . Non-Emergent Contact Non-Emergency issues call your: Primary Care Provider . Past History Medical & Surgical History: (1) Cellulitis (2) Down syndrome (3) Hypothyroidism (4) Mild mental retardation (5) H/O atrial septal defect repair . "Provider Documentation" section prepared by Horace Chapin. . VTE Core Measure Inpt VTE Proph given/why not?: Enoxaparin (Lovenox)SQ <Electronically signed by Horace Chapin M.D.> Signed: 03/10/17 0118 Additional Copies To Rodrigue Bhandari PA-C
== END 2017-03-09 14:46 | disposition home or self-care (01) | DRG 603 ==
LOC: C.EDB 08:40 → C.MS2W 12:06 → ENRESERV 12:20
PROVIDERS: ADMIT Hospitalist; ATTEND Internal Medicine
DX: L03.115 Cellulitis of right lower limb (principal); L03.116 Cellulitis of left lower limb; I82.811 Embolism and thrombosis of superficial veins of right lower extremity; I82.812 Embolism and thrombosis of superficial veins of left lower extremity; Q90.9 Down syndrome, unspecified; E03.9 Hypothyroidism, unspecified; F70 Mild intellectual disabilities; Z80.3 Family history of malignant neoplasm of breast; Z87.74 Personal history of (corrected) congenital malformations of heart and circulatory system; R31.9 Hematuria, unspecified; R21 Rash and other nonspecific skin eruption; E87.70 Fluid overload, unspecified